=== PATIENT | male | born 1930 | race African-American/Black ===

== ENCOUNTER 2017-02-04 12:59 | Inpatient (IN) | payer MEDICARE, OTHER ==
[~2017-02-04] VITALS: Wt 62.0 kg
[~2017-02-04 12:59] MED LIST: AMO500 PO; BENA5TAB2 PO; DIAZ5TAB4 PO; DICL100G37 TOP; HYDR-3498 PO; HYDR-762 PO; IBUP-1542 PO; IBUP400T22 PO; NAPR-688 PO; SILO8CAP PO; SIMV20TA2 PO; TRAM50TA2 PO
[2017-02-04 13:58] LABS: ADD SCAN DIFF NO
[2017-02-04 14:00] LABS: BASOPHILS % 0.5 % (0.0-2.0); EOSINOPHILS # 0.1 10^3/ul (0.0-0.5); EOSINOPHILS % 1.8 % (0.0-7.0); HEMATOCRIT 29.4 % (42.0-52.0); HEMOGLOBIN 8.7 g/dl (14.0-18.0); LYMPHOCYTES % 22.3 % (15.0-51.0); MEAN CORPUSCULAR HEMOGLOBIN 23.6 pg (29.0-33.0); MEAN CORPUSCULAR HGB CONC 29.6 g/dl (32.0-37.0); MEAN CORPUSCULAR VOLUME 79.7 fl (82.0-101.0); MEAN PLATELET VOLUME 9.7 fl (7.4-10.4); MONOCYTE # 0.3 10^3/ul (0.3-0.9); MONOCYTES % 7.6 % (0.0-11.0); NEUTROPHIL # 2.9 10^3/ul (1.6-7.5); NEUTROPHILS % 67.6 % (39.0-77.0); PLATELET COUNT 261 10^3/UL (140-415); RED BLOOD COUNT 3.69 10^6/ul (4.70-6.10); RED CELL DISTRIBUTION WIDTH 18.6 % (11.5-14.5); WHITE BLOOD COUNT 4.4 10^3/ul (4.8-10.8)
[2017-02-04] MEDS ORDERED: ACETAMINOPHEN 325 MG TAB PO PRN (14:00)
[2017-02-04] MEDS ORDERED: ONDANSETRON 4 MG INJ IV PRN (14:00)
[2017-02-04 14:19] LABS: INR 1.06; PROTIME 13.8 Sec (12.2-14.2); PT RATIO 1.1
[2017-02-04 14:20] LABS: PARTIAL THROMBOPLASTIN TIME 35.6 Sec (25.0-35.0)
--- NOTE | 2017-02-04 14:20 | RADRPT ---
PROCEDURE: XR Chest. CLINICAL INDICATION: Chest pain TECHNIQUE: Single frontal view of the chest was obtained COMPARISON: 08/13/16 FINDINGS: The heart is enlarged. The thoracic aorta is calcified. The lungs are clear. There is no pleural effusion or pneumothorax. RPTAT: AA IMPRESSION: Mild to moderate cardiomegaly. Calcified aorta consistent with atherosclerotic disease. .Russ Murillo MD, MD Date Time Electronically viewed and signed by .Russ Murillo MD, on 02/04/2017 14:20 .S/
[2017-02-04 14:24] LABS: CALCIUM 8.7 mg/dl (8.4-10.2); CREATININE 0.64 mg/dl (0.61-1.24); POTASSIUM 4.3 mmol/L (3.5-5.1)
[2017-02-04 14:35] LABS: TROPONIN-I 0.012 ng/ml (0.00-0.12)
--- NOTE | 2017-02-04 14:43 | RADRPT ---
PROCEDURE: US Lower extremity Venous. CLINICAL INDICATION: Right leg edema TECHNIQUE: Multiple sonographic images of the right lower extremity deep venous system was obtaine d utilizing grayscale, color-flow, compressive sonography and doppler imaging with augmentation. Th e images were reviewed on a PACS workstation. COMPARISON: 07/12/2016 FINDINGS: The right popliteal vein is partially compressible with echogenic material within it. There is echo genic material within the right peroneal vein which is not compressible. There is normal compressibility and flow within the right common femoral, femoral veins. RPTAT: AA IMPRESSION: Partial DVT of the right popliteal vein. DVT of the right peroneal vein. 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 A call report was made and the findings discussed with Darnell Yanez at 02/04/2017 2:41:11 PM. .Russ Murillo MD, MD Date Time Electronically viewed and signed by .Russ Murillo MD, on 02/04/2017 14:43 .S/
--- NOTE | 2017-02-04 14:50 | ERA ---
ER Documentation Chief Complaint Date/Time DATE: 02/04/17 TIME: 14:48 Chief Complaint sent by pmd for r/o dvt on R LEG, NO CP OR SOB NOTED. MILD SWELLING HPI Patient is a 86-year-old male with hypertension who presents with right leg swelling. The patient was sent by Dr. Rincon for admission. Swelling started weeks ago. He had a right knee replacement done in August and then had a revision done as well. His right leg is discolored. He is not on blood thinning medications. He denies pain. He has no chest pain or shortness of breath. ROS All systems reviewed and are negative except as per history of present illness. Medications Home Meds Reported Medications Benazepril Hcl* (Benazepril Hcl*) 5 Mg Tablet, 5 MG PO DAILY, TAB 01/18/15 Diazepam* (Diazepam*) 5 Mg Tablet, 5 MG PO DAILY Y for ANXIETY, TAB 09/07/14 Hydrocodone Bit-Acetaminophen* ([place]*) 10-325 Mg Tablet, 1 TAB PO BID for PAIN , TAB 09/07/14 Silodosin (Rapaflo) 8 Mg Capsule, 8 MG PO DAILY, CAP 09/07/14 Simvastatin (Simvastatin) 20 Mg Tablet, 20 MG PO DAILY, TAB 09/07/14 Discontinued Scripts Tramadol HCl (Tramadol HCl) 50 Mg Tablet, 50 MG PO Q4 Y for PAIN, #20 TAB Prov:OFELIA JENKINS MD 05/30/16 Diclofenac Sodium* (Voltaren* Gel) 1% -100 Gm Gel, 2 GM TOP QID, #1 TUB Prov:KATELIN NICOLE NP 05/05/16 Ibuprofen* (Motrin*) 400 Mg Tab, 400 MG PO Q6, #30 TAB Prov:KATELIN NICOLE NP 05/05/16 Ibuprofen* (Motrin*) 600 Mg Tab, 600 MG PO Q6, #30 TAB Prov:KISHOR CROCKETT PA-C 02/17/16 Naproxen* (Naproxen*) 500 Mg Tablet, 375 MG PO BID for PAIN, #20 TAB Prov:JENNY DOUGHERTY DO 11/04/15 Amoxicillin* (Amoxicillin*) 500 Mg Cap, 500 MG PO TID for 10 Days, CAP Prov:JENNY DOUGHERTY DO 11/04/15 Hydrocodone Bit-Acetaminophen* ([place]*) 10-325 Mg Tablet, 1 TAB PO DAILY Y for PAIN, #7 TAB 0 Refills Prov:NIR JOSEPH PA-C 09/28/15 Hydrocodone Bit-Acetaminophen* ([place]*) 5-325 Mg Tab, 1 TAB PO Q6 Y for PAIN, # 14 TAB Prov:NARESH CLIFFORD PA-C 08/30/15 Allergies Allergies: Coded Allergies: No Known Allergies (Verified Allergy, Mild, 02/04/17) PMhx/Soc History of Surgery: Yes (hip, knee, wrist, ribs sx) Anesthesia Reaction: No Hx Neurological Disorder: No Hx Respiratory Disorders: No Hx Cardiac Disorders: Yes (HTN) Hx Psychiatric Problems: No Hx Alcohol Use: No Hx Substance Use: No Hx Tobacco Use: No Smoking Status: Never smoker FmHx Family History: No diabetes Physical Exam Vitals Vital Signs Date Time Temp Pulse Resp B/P Pulse Ox O2 Delivery O2 Flow Rate FiO2 02/04/17 13:08 97.3 50 20 166/70 98 Physical Exam Const: No acute distress Head: Atraumatic Eyes: Normal Conjunctiva ENT: Normal External Ears, Nose and Mouth. Neck: Full range of motion..~ No meningismus. Resp: Clear to auscultation bilaterally Cardio: Regular rate and rhythm, no murmurs Abd: Soft, non tender, non distended. Normal bowel sounds Skin: Discoloration of the right lower extremity Back: No midline or flank tenderness Ext: Right lower extremity swelling with pitting Neur: Awake and alert Psych: Normal Mood and Affect Result Diagram: 02/04/17 1350 02/04/17 1350 Results 24 hrs Laboratory Tests Test 02/04/17 13:50 White Blood Count 4.410^3/ul Red Blood Count 3.6910^6/ul Hemoglobin 8.7g/dl Hematocrit 29.4% Mean Corpuscular Volume 79.7fl Mean Corpuscular Hemoglobin 23.6pg Mean Corpuscular Hemoglobin Concent 29.6g/dl Red Cell Distribution Width 18.6% Platelet Count 06072^3/UL Mean Platelet Volume 9.7fl Neutrophils % 67.6% Lymphocytes % 22.3% Monocytes % 7.6% Eosinophils % 1.8% Basophils % 0.5% Nucleated Red Blood Cells % 0.0/100WBC Neutrophils # 2.910^3/ul Lymphocytes # 1.010^3/ul Monocytes # 0.310^3/ul Eosinophils # 0.110^3/ul Basophils # 0.010^3/ul Nucleated Red Blood Cells # 0.010^3/ul Prothrombin Time 13.8Sec Prothrombin Time Ratio 1.1 INR International Normalized Ratio 1.06 Activated Partial Thromboplast Time 35.6Sec Sodium Level 141mmol/L Potassium Level 4.3mmol/L Chloride Level 108mmol/L Carbon Dioxide Level 27mmol/L Anion Gap 10 Blood Urea Nitrogen 15mg/dl Creatinine 0.64mg/dl Glucose Level 124mg/dl Calcium Level 8.7mg/dl Troponin I 0.012ng/ml Current Medications Medications (Trade) Dose Ordered Sig/Italo Route PRN Reason Start Time Stop Time Status Last Admin Dose Admin Ondansetron HCl (Zofran Inj) 4 mg BRIDGE ORDER PRN IV NAUSEA AND/OR VOMITING 02/04/17 14:00 02/05/17 13:59 Acetaminophen (Tylenol Tab) 650 mg ER BRIDGE PRN PO MILD PAIN/FEVER 02/04/17 14:00 02/05/17 13:59 Apixaban (Eliquis) 10 mg ONCE ONCE PO 02/04/17 15:00 02/04/17 15:01 Procedures/MDM Right lower extremity ultrasound shows DVT per radiology. Chest x-ray shows cardiomegaly per radiology. Patient is a 86-year-old male with hypertension who presents with an acute DVT. The patient will be given Eliquis for blood thinning. The patient will need admission to the hospital and I spoke with Dr. Rincon who will admit the patient to a medical surgical bed. At this point I doubt pulmonary embolism. I doubt infection. Departure Diagnosis: Primary Impression: DVT (deep venous thrombosis) Qualified Code: I82.401 - Acute deep vein thrombosis (DVT) of right lower extremity, unspecified vein Additional Impression: Right leg swelling Condition: RISSA Bhandari MD Feb 04, 2017 14:50
[2017-02-04] MEDS ORDERED: APIXABAN 5 MG TABLET PO ONE (15:00)
[2017-02-04 21:49] LABS: TROPONIN-I 0.014 ng/ml (0.00-0.12)
[2017-02-04 21:55] LABS: CK-MB 1.23 ng/ml (0.0-2.4)
[2017-02-05 00:54] VITALS: BP_SYST 162; RESP 20
[2017-02-05] MEDS ORDERED: ZOLPIDEM 5 MG TAB PO PRN (02:30)
[2017-02-05] MEDS ORDERED: ACETAMINOPHEN 500 MG TAB PO PRN (02:30)
[2017-02-05 02:46] LABS: TROPONIN-I 0.016 ng/ml (0.00-0.12)
[2017-02-05 02:53] LABS: CK-MB 1.1 ng/ml (0.0-2.4)
[2017-02-05 07:00] VITALS: BP 129/80; RESP 20
[2017-02-05] MEDS: LOSARTAN 50 MG TAB PO SCH (09:33)
[2017-02-05] MEDS: ENOXAPARIN 60 MG/0.6 ML SYG SC SCH (09:34)
[2017-02-05] MEDS ORDERED: LOPERAMIDE 2 MG CAP PO PRN (13:30)
[2017-02-05] MEDS ORDERED: ONDANSETRON 4 MG INJ IV PRN (13:30)
--- NOTE | 2017-02-05 13:43 | HP ---
DATE OF ADMISSION: 02/04/2017 CHIEF COMPLAINT AND HISTORY OF PRESENT ILLNESS: The patient is an 86-year-old gentleman who is well known to me from previous followup with a known history of hypertension, history of lumbar radiculo mika, who was last seen by me in August, was cleared for surgery for right knee replacement in [facility], and had a revision of the same. He was lost to followup. Apparently he was placed at a [facility], from where he was discharged a week ago. He was brought in by his daughter to my office with swelling of the right leg, which has been progressive over the course of last several weeks, wi th some pain. Patient was referred to the emergency room for ruling out deep vein thrombosis. The patient was admitted after a venous study was done which showed partial DVT of the right popliteal v ein and the right peroneal vein. REVIEW OF SYSTEMS: HEAD: No history of headaches, focal weakness, or numbness. EYES: No blurry vision or glaucoma. ENT: Noncontributory. NECK: No history of thyroid disease. CHEST: No bronchitis, hay fever, or asthma. The patient does not smoke. CARDIOVASCULAR: No PND, orthopnea, palpitations. GASTROINTESTINAL: No constipation, diarrhea, change in bowel habits. GENITOURINARY: No dysuria, hematuria, kidney stones. HABITS: Does not smoke or drink. The patient is quite active. Used to go to the gym on a regular basis up until the knee surgery. MEDICATIONS: Include: 1. Simvastatin 20 mg daily. 2. [place] 10/325 mg b.i.d. p.r.n. 3. Diazepam 5 mg p.o. daily for anxiety. 4. Benazepril 5 mg p.o. daily. PRIOR SURGERIES: Include knee replacement and also had hip surgery, exact details not clear. FAMILY HISTORY: Negative for diabetes, hypertension or cancer. PHYSICAL EXAMINATION: GENERAL: The patient is an average-built male who is in mild distress secondary to pain. VITAL SIGNS: Blood pressure 166/70, respiratory 20 per minute, heart rate 52 per minute and regular . HEENT: Head normocephalic. No pallor, cyanosis, or icterus. Tongue is moist. NECK: Supple. No thyromegaly, bruits or lymphadenopathy. LUNGS: Clinically clear. HEART: S1, S2 heard with no definite gallops. ABDOMEN: Soft, nontender, no hepatosplenomegaly. EXTREMITIES: Darkish discoloration of the right lower extremity with 1+ pitting edema with positive Homans sign. LABORATORY DATA: WBC count 4.4, hematocrit 29.4, platelet count 261,000. Sodium 141, potassium 4.3 , BUN 15, creatinine 0.64. Troponin 0.01. 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 IMPRESSION: 1. Deep vein thrombosis of the right lower extremity. 2. Status post right total knee replacement. 3. Hypertension. 4. Mild anemia. PLAN: The patient will be admitted to the medical floor. Patient has had DVT in 2014. Will need t o continue Lovenox for now. Will consider getting a vascular evaluation. Once he is medically stab le, we will consider a trial of rehab. Dictated By: LESLEY PORTER MD, SR/PRINCE Conf#: [id number] DID#: [id number]
[2017-02-05] MEDS: HYDROCODONE/APAP (7.5/325) TAB PO PRN (16:49)
[2017-02-05 21:34] VITALS: BP 142/67; RESP 19
[2017-02-06 05:12] LABS: ADD SCAN DIFF NO
[2017-02-06 05:20] LABS: BASOPHILS % 0.6 % (0.0-2.0); EOSINOPHILS # 0.1 10^3/ul (0.0-0.5); EOSINOPHILS % 3.6 % (0.0-7.0); HEMATOCRIT 25.1 % (42.0-52.0); HEMOGLOBIN 7.5 g/dl (14.0-18.0); MEAN CORPUSCULAR HEMOGLOBIN 23.4 pg (29.0-33.0); MEAN CORPUSCULAR HGB CONC 29.9 g/dl (32.0-37.0); MEAN CORPUSCULAR VOLUME 78.2 fl (82.0-101.0); MEAN PLATELET VOLUME 9.6 fl (7.4-10.4); MONOCYTE # 0.4 10^3/ul (0.3-0.9); MONOCYTES % 10.4 % (0.0-11.0); NEUTROPHIL # 1.8 10^3/ul (1.6-7.5); NEUTROPHILS % 54.1 % (39.0-77.0); PLATELET COUNT 218 10^3/UL (140-415); RED BLOOD COUNT 3.21 10^6/ul (4.70-6.10); RED CELL DISTRIBUTION WIDTH 18.6 % (11.5-14.5); WHITE BLOOD COUNT 3.4 10^3/ul (4.8-10.8)
[2017-02-06 05:35] LABS: CALCIUM 8.7 mg/dl (8.4-10.2); CREATININE 0.64 mg/dl (0.61-1.24); MAGNESIUM 1.9 mg/dl (1.7-2.5)
[2017-02-06 06:05] LABS: THYROID STIMULATING HORMONE 4.09 MIU/L (0.465-4.680)
[2017-02-06] MEDS: LOSARTAN 50 MG TAB PO SCH (08:31)
[2017-02-06] MEDS: ENOXAPARIN 60 MG/0.6 ML SYG SC SCH (08:38)
[2017-02-06 09:37] VITALS: BP 184/97; RESP 19
[2017-02-06 19:38] VITALS: BP 151/67; RESP 18
[2017-02-07] MEDS: HYDROCODONE/APAP (7.5/325) TAB PO PRN (00:13)
--- NOTE | 2017-02-07 01:30 | RADRPT ---
PROCEDURE: X-ray right knee CLINICAL INDICATION: Right knee arthroplasty is new, with swelling. TECHNIQUE: 5 views of the right knee. COMPARISON: None available at the time of this interpretation. FINDINGS: Right knee arthroplasty is seen. There is no evident hardware complication or acute fracture. There is a moderate right knee joint effusion with mild soft tissue swelling over the anterior right knee. There is patella danilo. IMPRESSION: 1. Right knee joint effusion with swelling over the anterior knee. 2. No evident hardware complication or acute fracture. RPTAT: [facility] Physician Mauricio Date Time Electronically viewed and signed by Physician Mauricio on 02/07/2017 01:30 RS/
[2017-02-07] MEDS: PANTOPRAZOLE (EC) 40 MG TAB PO SCH (05:31)
[2017-02-07 05:39] LABS: ADD SCAN DIFF NO
[2017-02-07 05:48] LABS: BASOPHILS % 0.5 % (0.0-2.0); EOSINOPHILS # 0.2 10^3/ul (0.0-0.5); EOSINOPHILS % 3.5 % (0.0-7.0); HEMOGLOBIN 9.3 g/dl (14.0-18.0); LYMPHOCYTES % 23.6 % (15.0-51.0); MEAN CORPUSCULAR HEMOGLOBIN 24.9 pg (29.0-33.0); MEAN CORPUSCULAR VOLUME 80.4 fl (82.0-101.0); MEAN PLATELET VOLUME 9.8 fl (7.4-10.4); MONOCYTE # 0.5 10^3/ul (0.3-0.9); MONOCYTES % 10.9 % (0.0-11.0); NEUTROPHIL # 2.7 10^3/ul (1.6-7.5); NEUTROPHILS % 61.3 % (39.0-77.0); PLATELET COUNT 218 10^3/UL (140-415); RED BLOOD COUNT 3.73 10^6/ul (4.70-6.10); RED CELL DISTRIBUTION WIDTH 18.3 % (11.5-14.5); WHITE BLOOD COUNT 4.3 10^3/ul (4.8-10.8)
[2017-02-07 06:04] LABS: BILIRUBIN,INDIRECT 0.6 mg/dl (0-1.1); BILIRUBIN,TOTAL 0.6 mg/dl (0.2-1.3); CALCIUM 8.8 mg/dl (8.4-10.2); CREATININE 0.73 mg/dl (0.61-1.24); POTASSIUM 4.6 mmol/L (3.5-5.1)
[2017-02-07 06:33] LABS: THYROID STIMULATING HORMONE 5.03 MIU/L (0.465-4.680)
[2017-02-07 07:00] VITALS: BP 182/81; RESP 18
--- NOTE | 2017-02-07 07:15 | CONS ---
Date/Time of Note Date/Time of Note DATE: 02/07/17 TIME: 07:10 Assessment/Plan Assessment/Plan Chief Complaint/Hosp Course 1) RLE partial DVT doubt there is cellulitis no increase in heat (if present it is marginal) no pain and no ian redness CBC is normal without an increase in PMN's ESR, CRP are mildly elevated continue off antibiotics 2) s/p R TKR no sign of knee joint infection, typical swelling post surgery without pain or heat or redness noted 3) HTN Problems: Consultation Date/Type/Reason Admit Date/Time Feb 04, 2017 at 13:46 Date of Consultation: Feb 07, 2017 Type of Consultation: ID Hx of Present Illness pt admitted due to RLE swelling he denies F, C, NS No N, V, D, SOB, cough No pain to the leg He had a R TKR several months ago He had some swelling to calf when he left rehab but it got worse at home He states he is very active at home Past Medical History HTN, Lumbar radiculopathy, DVT post hip surgery Past Surgical History L hip surgery, R TKR Social History Smoking Status: Former smoker Exam/Review of Systems Vital Signs Vitals Vital Signs Date Time Temp Pulse Resp B/P Pulse Ox O2 Delivery O2 Flow Rate FiO2 02/06/17 19:38 97.8 59 18 151/67 100 02/05/17 00:02 Room Air Intake and Output 02/06/17 02/06/17 02/07/17 15:00 23:00 07:00 Intake Total 700 ml 1500 ml Output Total 1000 ml 700 ml Balance -300 ml 800 ml Exam Constitutional: alert, oriented Psych: no complaints Head: normocephalic Eyes: nl sclera ENMT: mucosa pink and moist Respiratory: clear to auscultation Cardiovascular: regular rate and rhythm Gastrointestinal: non-tender, soft Extremities: other (R calf and ankle have swelling without pain or increase in heat, some discoloration of skin but no ian redness) Results Result Diagram: 02/07/17 04202/07/17 0420 Results 24 hrs Laboratory Tests Test 02/06/17 13:57 02/07/17 04:20 02/07/17 07:03 Erythrocyte Sedimentation Rate 37 H C-Reactive Protein 3.2 H White Blood Count 4.3 #L Red Blood Count 3.73 L Hemoglobin 9.3 #L Hematocrit 30.0 L Mean Corpuscular Volume 80.4 L Mean Corpuscular Hemoglobin 24.9 L Mean Corpuscular Hemoglobin Concent 31.0 L Red Cell Distribution Width 18.3 H Platelet Count 218 Mean Platelet Volume 9.8 Neutrophils % 61.3 Lymphocytes % 23.6 Monocytes % 10.9 Eosinophils % 3.5 Basophils % 0.5 Nucleated Red Blood Cells % 0.0 Neutrophils # 2.7 Lymphocytes # 1.0 Monocytes # 0.5 Eosinophils # 0.2 Basophils # 0.0 Nucleated Red Blood Cells # 0.0 Sodium Level 138 Potassium Level 4.6 Chloride Level 106 Carbon Dioxide Level 27 Anion Gap 10 Blood Urea Nitrogen 13 Creatinine 0.73 Glucose Level 77 Calcium Level 8.8 Total Bilirubin 0.6 Direct Bilirubin 0.00 Indirect Bilirubin 0.6 Aspartate Amino Transf (AST/SGOT) 20 Alanine Aminotransferase (ALT/SGPT) 27 Alkaline Phosphatase 78 Total Protein 6.0 L Albumin 3.0 L Globulin 3.00 Albumin/Globulin Ratio 1.00 Thyroid Stimulating Hormone (TSH) 5.030 H Thyroxine (T4) 6.3 Lab Scanned Report BLOOD TRANSFUSION Medications Medications Current Medications Enoxaparin Sodium (Lovenox) 60 mg DAILY SC Last administered on 02/06/17 08:38 ; Admin Dose 60 MG; Start 02/05/17 at 09:00 Losartan Potassium (Cozaar) 50 mg DAILY PO Last administered on 02/06/17 08:31 ; Admin Dose 50 MG; Start 02/05/17 at 09:00 Clonidine (Catapres) 0.1 mg Q4H PRN PO ELEVATED BLOOD PRESSURE Last administered on 02/06/17 08:31; Admin Dose 0.1 MG; Start 02/05/17 at 02:30 Acetaminophen/ Hydrocodone Bitart ([place] (7.5-325)) 1 tab Q4H PRN PO SEVERE PAIN LEVEL 7-10 Last administered on 02/07/17 00:13; Admin Dose 1 TAB; Start 02/05/17 at 02:30 Acetaminophen (Tylenol Tab) 500 mg Q4H PRN PO PAIN AND OR ELEVATED TEMP; Start 02/05/17 at 02:30 Lorazepam (Ativan) 0.5 mg Q4H PRN PO ANXIETY; Start 02/05/17 at 02:30 Zolpidem Tartrate (Ambien) 5 mg HS PRN PO INSOMNIA; Start 02/05/17 at 02:30 Loperamide HCl (Imodium Cap) 2 mg QID PRN PO DIARRHEA; Start 02/05/17 at 13:30 Ondansetron HCl (Zofran Inj) 4 mg Q6H PRN IV NAUSEA AND/OR VOMITING; Start 02/05 at 13:30 Pantoprazole (Protonix Tab) 40 mg DAILY@06 PO Last administered on 02/07/17t 05: 31; Admin Dose 40 MG; Start 02/07/17 at 06:00 KIM HWANG MD Feb 07, 2017 07:15
--- NOTE | 2017-02-07 07:31 | PN ---
DATE: 02/06/2017 SUBJECTIVE: The patient has mild pain in the right leg. Denies any chest pain or shortness of anthony th. PHYSICAL EXAMINATION VITAL SIGNS: Temperature 97.8, blood pressure 184/97, heart rate 53 per minute, pulse ox 100%. CHEST: Clinically clear. HEART: S1, S2 heard with no definite gallops. ABDOMEN: Soft, nontender, no hepatosplenomegaly. EXTREMITIES: Mild swelling of the right knee, the right leg feels warmer compared to the left leg. Right heel and foot without any swelling. LABORATORY DATA: WBC count 33.4, hematocrit 25.1, hemoglobin of 7.5. IMPRESSION: 1. Deep vein thrombosis of the right lower extremity. 2. Status post right total knee replacement. 3. Severe anemia. 4. The patient likely has underlying cellulitis, right leg. PLAN: Will obtain sed rate. Type and cross for 2 units of packed cells transfused 2 units. We [place] request an infectious disease consultation, Dr. Real. Consider IV antibiotic coverage. Dictated By: LESLEY PORTER MD, SR/PRINCE Conf#: [id number] DID#: [id number]
[2017-02-07 07:35] VITALS: BP 158/84; PULSE 50
[2017-02-07] MEDS: ENOXAPARIN 60 MG/0.6 ML SYG SC SCH (09:10)
[2017-02-07] MEDS: LOSARTAN 50 MG TAB PO SCH (09:12)
[2017-02-07 20:02] VITALS: BP 145/67; RESP 18
[2017-02-07] MEDS: LORAZEPAM 0.5 MG TAB PO PRN (21:20)
[2017-02-08] MEDS: PANTOPRAZOLE (EC) 40 MG TAB PO SCH (05:36)
[2017-02-08 07:00] VITALS: BP 189/91; RESP 18
[2017-02-08] MEDS: LOSARTAN 50 MG TAB PO SCH (09:56)
[2017-02-08] MEDS: ENOXAPARIN 60 MG/0.6 ML SYG SC SCH (10:01)
--- NOTE | 2017-02-08 15:26 | PN ---
DATE: 02/08/2017 SUBJECTIVE: The patient has less pain in the right knee. Denies any chest pain or shortness of bryan ath. PHYSICAL EXAMINATION: GENERAL: The patient is afebrile. VITAL SIGNS: Temperature 98.9, heart rate 54 per minute, blood pressure 189/91, O2 saturation 95% on room air. CHEST: Clinically clear. HEART: S1, S2 heard. No definite gallops. EXTREMITIES: Decreased swelling in the right leg. Dr. Real, ID evaluation, greatly appreciated. X-ray of the right knee shows joint effusion with swe lling over the anterior knee. IMPRESSION: 1. Status post right total knee replacement, with DVT of the right lower extremity. 2. Anemia. Improved after transfusions. 3. Hypertension. PLAN: Will get the patient evaluated for physical therapy and discuss with the rehab unit for possi ble admission. Dictated By: LESLEY PORTER MD, SR/PRINCE Conf#: [id number] DID#: [id number]
[2017-02-08 19:00] VITALS: BP 166/67; RESP 18
[2017-02-09] MEDS: LORAZEPAM 0.5 MG TAB PO PRN (01:22)
[2017-02-09 01:24] VITALS: BP 167/83; PULSE 63
[2017-02-09 05:18] LABS: ADD SCAN DIFF NO
[2017-02-09 05:25] VITALS: BP 146/73; PULSE 53; RESP 17
[2017-02-09] MEDS: PANTOPRAZOLE (EC) 40 MG TAB PO SCH (05:26)
[2017-02-09 05:28] LABS: BASOPHILS % 0.4 % (0.0-2.0); EOSINOPHILS # 0.1 10^3/ul (0.0-0.5); EOSINOPHILS % 2.1 % (0.0-7.0); HEMATOCRIT 32.4 % (42.0-52.0); HEMOGLOBIN 9.9 g/dl (14.0-18.0); LYMPHOCYTES # 0.9 10^3/ul (0.8-2.9); LYMPHOCYTES % 15.6 % (15.0-51.0); MEAN CORPUSCULAR HEMOGLOBIN 25.1 pg (29.0-33.0); MEAN CORPUSCULAR HGB CONC 30.6 g/dl (32.0-37.0); MEAN CORPUSCULAR VOLUME 82.2 fl (82.0-101.0); MEAN PLATELET VOLUME 11.4 fl (7.4-10.4); MONOCYTE # 0.8 10^3/ul (0.3-0.9); MONOCYTES % 13.3 % (0.0-11.0); NEUTROPHIL # 3.9 10^3/ul (1.6-7.5); NEUTROPHILS % 68.2 % (39.0-77.0); PLATELET COUNT 194 10^3/UL (140-415); RED BLOOD COUNT 3.94 10^6/ul (4.70-6.10); RED CELL DISTRIBUTION WIDTH 19.4 % (11.5-14.5); WHITE BLOOD COUNT 5.7 10^3/ul (4.8-10.8)
[2017-02-09 05:41] LABS: CALCIUM 8.5 mg/dl (8.4-10.2); CREATININE 0.63 mg/dl (0.61-1.24); MAGNESIUM 1.9 mg/dl (1.7-2.5); POTASSIUM 4.2 mmol/L (3.5-5.1)
[2017-02-09 08:16] VITALS: BP 153/78; RESP 56
[2017-02-09] MEDS: ENOXAPARIN 60 MG/0.6 ML SYG SC SCH (10:26)
[2017-02-09] MEDS: LOSARTAN 50 MG TAB PO SCH (10:27)
[2017-02-09] MEDS: HYDROCODONE/APAP (7.5/325) TAB PO PRN ×2 (18:34→22:33)
[2017-02-09 19:10] VITALS: BP 155/78; RESP 16
[2017-02-10] MEDS: LORAZEPAM 0.5 MG TAB PO PRN (01:53)
[2017-02-10] MEDS: HYDROCODONE/APAP (7.5/325) TAB PO PRN (03:13)
[2017-02-10] MEDS: PANTOPRAZOLE (EC) 40 MG TAB PO SCH (05:58)
--- NOTE | 2017-02-10 07:30 | PN ---
DATE: 02/09/2017 SUBJECTIVE: The patient has some pain, right knee. Denies any chest pain or shortness of breath. PHYSICAL EXAMINATION: VITAL SIGNS: Temperature 98.6, blood pressure 153/78, O2 sat is 100%. CHEST: Clinically clear. HEART: S1, S2 heard with no audible gallops. EXTREMITIES: Decreased swelling in the right leg. IMPRESSION: 1. Status post right total knee replacement with DVT of right lower extremity. 2. Anemia, improved after transfusion. 3. Hypertension. PLAN: We will await for physical therapy and then discuss with rehab unit for possible transfer to rehab. Dictated By: LESLEY PORTER MD SR/PRINCE Conf#: [id number] DID#: [id number]
--- NOTE | 2017-02-10 08:01 | PN ---
DATE: 02/07/2017 SUBJECTIVE: The patient has mild pain in the right knee. Denies any chest pain or shortness of bryan ath. PHYSICAL EXAMINATION: VITAL SIGNS: Temperature 97.8, heart rate 50 per minute, regular, blood pressure 182/81 in the morn ing, presently is 158/84. JVD is not increased. LUNGS: Clinically clear. HEART: S1, S2 heard with no definite gallops. EXTREMITIES: No edema. Minimal swelling of the right lower extremity with positive Homans sign. Dr. Real from ID consultation greatly appreciated. X-ray of the right knee shows a right knee effusion, no evident hardware complication or acute fract ure evident. LABORATORY DATA: WBC count 4.3, hematocrit 30, status post 2 units of packed cells. Sodium 138, po tassium 4.6. IMPRESSION: 1. DVT of the right lower extremity, status post right total knee replacement. 2. Anemia, stable. 3. Hypertension. We will get a PT evaluation tomorrow and eventually consider acute rehabilitation unit consultation. Dictated By: LESLEY PORTER MD, SR/PRINCE Conf#: [id number] DID#: [id number]
[2017-02-10 08:18] VITALS: BP 134/67; RESP 18
[2017-02-10] MEDS: APIXABAN 5 MG TABLET PO SCH ×3 (09:08→22:08)
[2017-02-10] MEDS: LOSARTAN 50 MG TAB PO SCH (09:08)
[2017-02-10 19:30] VITALS: BP 138/67; RESP 20
[2017-02-11] MEDS: PANTOPRAZOLE (EC) 40 MG TAB PO SCH (05:30)
--- NOTE | 2017-02-11 07:11 | PN ---
DATE: 02/10/2017 SUBJECTIVE: The patient has less pain in the right leg. No chest pain or shortness of breath. OBJECTIVE: VITAL SIGNS: Temperature 98, blood pressure 134/67, O2 sat 98% room air. LUNGS: Clinically clear. HEART: S1, S2 heard with no definite gallops. EXTREMITIES: No edema right lower extremity. Homans negative. The patient was started on Eliquis. LABORATORY DATA: WBC count 5.7, hematocrit 32.4, platelet count 194,000. Sodium 139, potassium 4.2 , BUN 17, creatinine 0.63, magnesium 1.9. IMPRESSION: 1. Status post right total knee replacement with deep vein thrombosis, right lower extremity. 2. Anemia, stable. 3. Hypertension. 4. Frailty and poor functional status. PLAN: I have requested physical therapy to evaluate the patient to start him on gait training, rea sfer training, and we will request acute rehabilitation unit evaluation since the plans are to disch arge him back to home. Dictated By: LESLEY PORTER MD, SR/PRINCE Conf#: [id number] DID#: [id number]
[2017-02-11 07:29] VITALS: BP 153/70; RESP 18
[2017-02-11] MEDS: LOSARTAN 50 MG TAB PO SCH (08:55)
[2017-02-11] MEDS: APIXABAN 5 MG TABLET PO SCH ×2 (08:55→20:00)
--- NOTE | 2017-02-11 11:25 | PN ---
DATE: 02/11/2017 SUBJECTIVE: The patient denies any leg pain. No chest pain or shortness of breath. PHYSICAL EXAMINATION: VITAL SIGNS: Temperature 97.9, heart rate 54 per minute regular, blood pressure 153/70, O2 sats 98% on room air. CHEST: Clinically clear. HEART: S1, S2 heard with no definite gallops. ABDOMEN: Soft, nontender. No hepatosplenomegaly. EXTREMITIES: No edema. Homans sign negative. The patient tolerating p.o. liquids. IMPRESSION: 1. Status post right knee replacement with deep vein thrombosis, right lower extremity. 2. Anemia, stable. 3. Hypertension. 4. Poor functional status. The patient has been started on physical therapy. Acute rehabilitation unit evaluation is pending. Dictated By: LESLEY PORTER MD, SR/PRINCE Conf#: [id number] DID#: [id number]
[2017-02-11] MEDS: LORAZEPAM 0.5 MG TAB PO PRN (19:57)
[2017-02-11 20:27] VITALS: BP 118/65; RESP 20
[2017-02-12] MEDS: HYDROCODONE/APAP (7.5/325) TAB PO PRN (00:54)
[2017-02-12] MEDS: PANTOPRAZOLE (EC) 40 MG TAB PO SCH (05:24)
[2017-02-12 08:12] VITALS: BP 155/77; RESP 18
[2017-02-12] MEDS: APIXABAN 5 MG TABLET PO SCH (09:47)
[2017-02-12] MEDS: LOSARTAN 50 MG TAB PO SCH (09:47)
--- NOTE | 2017-02-13 06:57 | PN ---
DATE: 02/12/2017 SUBJECTIVE: The patient overall feels better. Minimal right lower extremity pain. Complains of ge neralized weakness. PHYSICAL EXAMINATION: GENERAL: The patient is awake, alert. VITAL SIGNS: Temperature 97.7, heart rate 52 per minute and regular, blood pressure 155/77. CHEST: Clinically clear. HEART: S1, S2 with no definite gallops. EXTREMITIES: No edema. Moderate proximal muscle weakness in the lower extremities, especially the quadriceps. IMPRESSION: 1. Status post right knee replacement with deep vein thrombosis of the right lower extremity. 2. 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 3. Anemia, stable. 4. Hypertension. PLAN: The patient is in the process of being transferred to the rehab unit where he will continue r ehabilitation. Suspect good improvement in his overall physical condition with rehab treatment. Dictated By: LESLEY PORTER MD, SR/PRINCE Conf#: [id number] DID#: [id number]
== END 2017-02-12 18:40 | DRG 301 ==
LOC: E/R 12:59 → MS1 13:46
PROVIDERS: ADMIT Internal Medicine; ATTEND Internal Medicine
DX: I82.431 Acute embolism and thrombosis of right popliteal vein (principal); D64.9 Anemia, unspecified; G72.9 Myopathy, unspecified; I10 Essential (primary) hypertension; Z96.651 Presence of right artificial knee joint; Z87.891 Personal history of nicotine dependence
CPT/HCPCS: 36415; 36430; 71010; 73562; 80048; 80053; 82550; 82553; 83735; 84436; 84443; 84484; 85025; 85610; 85651; 85730; 86140; 86850; 86900; 86901; 86920; 93005; 93971; 97162; 97530; P9016

== ENCOUNTER 2017-02-12 13:06 | Inpatient (IN) | payer MEDICARE ==
[~2017-02-12] VITALS: Ht 175.3 cm; Wt 65.1 kg
[~2017-02-12 13:06] MED LIST changes: -AMO500 PO; -DICL100G37 TOP; -HYDR-3498 PO; -IBUP-1542 PO; -IBUP400T22 PO; -NAPR-688 PO; -TRAM50TA2 PO
[2017-02-12 20:06] VITALS: BP 138/69; RESP 18
[2017-02-12 21:00] VITALS: Ht 175.3 cm; Wt 65.1 kg
[2017-02-12] MEDS ORDERED: ZOLPIDEM 5 MG TAB PO PRN (21:00)
[2017-02-12] MEDS ORDERED: LOPERAMIDE 2 MG CAP PO PRN (21:00)
[2017-02-12] MEDS ORDERED: ACETAMINOPHEN 500 MG TAB PO PRN (21:00)
[2017-02-12] MEDS ORDERED: ONDANSETRON 4 MG INJ IV PRN (21:00)
[2017-02-12] MEDS ORDERED: LORAZEPAM 0.5 MG TAB PO PRN (21:00)
[2017-02-12] MEDS ORDERED: BISACODYL 10 MG SUPP PR PRN (21:30)
[2017-02-12] MEDS ORDERED: MAGNESIUM HYDROXIDE 30ML CUP PO PRN (21:30)
[2017-02-12] MEDS ORDERED: LACTULOSE 30ML CUP PO PRN (21:30)
[2017-02-12] MEDS: APIXABAN 5 MG TABLET PO SCH (21:52)
[2017-02-12] MEDS: HYDROCODONE/APAP (7.5/325) TAB PO PRN (22:12)
[2017-02-13 03:08] LABS: UR BILIRUBIN (Dip) NEGATIVE (NEGATIVE); UR CLARITY CLEAR (CLEAR); UR COLOR LT. YELLOW (YELLOW); UR GLUCOSE (Dip) NEGATIVE (NEGATIVE); UR KETONES (Dip) NEGATIVE (NEGATIVE); UR LEUKOCYTE ESTERASE (Dip) NEGATIVE (NEGATIVE); UR NITRITE (Dip) NEGATIVE (NEGATIVE); UR TOTAL PROTEIN (Dip) NEGATIVE (NEGATIVE); UR UROBILINOGEN (Dip) 0.2 E.U./dL (0.1-1.0)
[2017-02-13 03:17] LABS: ADD UMIC NO; UR BLOOD (Dip) NEGATIVE (NEGATIVE)
[2017-02-13] MEDS: PANTOPRAZOLE (EC) 40 MG TAB PO SCH (06:40)
[2017-02-13 07:17] LABS: ADD SCAN DIFF NO
[2017-02-13 07:18] LABS: BASOPHILS % 0.7 % (0.0-2.0); EOSINOPHILS # 0.2 10^3/ul (0.0-0.5); HEMATOCRIT 31.2 % (42.0-52.0); HEMOGLOBIN 9.3 g/dl (14.0-18.0); LYMPHOCYTES % 23.9 % (15.0-51.0); MEAN CORPUSCULAR HEMOGLOBIN 24.5 pg (29.0-33.0); MEAN CORPUSCULAR HGB CONC 29.8 g/dl (32.0-37.0); MEAN CORPUSCULAR VOLUME 82.1 fl (82.0-101.0); MEAN PLATELET VOLUME 9.8 fl (7.4-10.4); MONOCYTE # 0.4 10^3/ul (0.3-0.9); MONOCYTES % 9.5 % (0.0-11.0); NEUTROPHIL # 2.6 10^3/ul (1.6-7.5); NEUTROPHILS % 61.7 % (39.0-77.0); PLATELET COUNT 260 10^3/UL (140-415); RED CELL DISTRIBUTION WIDTH 19.3 % (11.5-14.5); WHITE BLOOD COUNT 4.2 10^3/ul (4.8-10.8)
[2017-02-13 07:30] VITALS: BP 161/70; RESP 18
[2017-02-13 07:58] LABS: ALBUMIN 3.2 g/dl (3.3-4.9); ALBUMIN/GLOBULIN RATIO 1.03; BILIRUBIN,INDIRECT 0.1 mg/dl (0-1.1); BILIRUBIN,TOTAL 0.1 mg/dl (0.2-1.3); CALCIUM 8.7 mg/dl (8.4-10.2); CREATININE 0.67 mg/dl (0.61-1.24); POTASSIUM 3.9 mmol/L (3.5-5.1); TOTAL PROTEIN 6.3 g/dl (6.1-8.1)
[2017-02-13] MEDS: LOSARTAN 50 MG TAB PO SCH (08:59)
[2017-02-13] MEDS: APIXABAN 5 MG TABLET PO SCH ×2 (08:59→20:51)
[2017-02-13 09:36] VITALS: BP 161/70; PULSE 50; RESP 18
--- NOTE | 2017-02-13 11:05 | PN ---
DATE: 02/13/2017 SUBJECTIVE: The patient has been transferred to the rehab unit. Presently complains of mild anxie ty. Denies any chest pain or shortness of breath. PHYSICAL EXAMINATION VITAL SIGNS: Blood pressure ____/70, temperature 97.4. O2 sat is 100% on room air. CHEST: Clinically clear. HEART: S1, S2 heard with no definite gallops. EXTREMITIES: No edema. Homans sign is negative. IMPRESSION: 1. Status post right knee replacement with deep venous thrombosis of the right lower extremity, cherry sara Rios. 2. 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 3. Chronic anemia. 4. Hypertension. PLAN: Will start the patient on low dose lorazepam on a p.r.n. basis for anxiety. Continue intensi ve rehabilitation per Dr. Elmore. I expect that his physical status will significantly improve over the coming days with rehabilitation. Dictated By: LESLEY PORTER MD, SR/PRINCE Conf#: [id number] DID#: [id number]
--- NOTE | 2017-02-13 13:04 | CONS ---
DATE OF ADMISSION: 02/12/2017 DATE OF CONSULTATION: 02/13/2017 REHABILITATION POST ADMISSION PHYSICIAN EVALUATION REHABILITATION IMPAIRMENT CATEGORY: Disuse myopathy. ACTIVE COMORBIDITIES: 1. Lumbar radiculopathy. 2. Hypertension. 3. Degenerative joint disease. 4. Right lower extremity deep venous thrombosis. 5. Impairments in self-care and mobility. HISTORY OF PRESENT ILLNESS: The patient is a pleasant 86-year-old gentleman with a history of lumbar radiculopathy and recent right total knee replacement, who had been at home after a stay at a senior care for his revision, when he was noted to have worsening swelling and pain diffusely, but not more notable in the right lower extremity. The patient was noted to have a right lower extremity deep venous thrombosis. 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 The patient was noted to have significant impairments in self-care and mobility as compared to baseline, and has been cleared to transfer to the rehabilitation unit for comprehensive interdisciplinary rehab care. FUNCTIONAL HISTORY: Prior to recent events, he was independent in self-care tasks and mobility. Currently he requires maximal assist for self-care and mobility tasks. I have reviewed the preadmission screen and the patient's current functional status is consistent with the preadmission screen. SOCIAL HISTORY: The patient has supportive family and hopes to return home upon discharge. PAST MEDICAL HISTORY: 1. Hypertension. 2. Lumbar radiculopathy. CURRENT MEDICATIONS: 1. Eliquis 5 mg p.o. b.i.d. 2. Catapres p.r.n. 3. [place] p.r.n. 4. Ativan p.r.n. 5. Cozaar 50 mg p.o. daily. 6. Protonix 40 mg p.o. daily. ALLERGIES: PATIENT WITH NO KNOWN DRUG ALLERGIES. PHYSICAL EXAMINATION: VITAL SIGNS: The patient is currently afebrile, with stable vital signs. HEENT: Extraocular motions intact. Oropharynx is clear. NECK: Supple. LUNGS: Clear anteriorly. CARDIAC: S1, S2. ABDOMEN: Soft, nontender, positive bowel sounds. NEUROLOGIC: He is awake and alert. He is oriented to person and hospital. He will follow simple 1-step commands. 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 He has decreased shoulder forward flexion and abduction bilaterally. He demonstrates antigravity strength in the bilateral lower extremities. He does have impaired dynamic balance. PLAN: The patient has been admitted for comprehensive interdisciplinary acute rehab and is anticipated to tolerate 3 hours of daily therapy in divided doses for at least 5/7 days a week. The treatment plan will include: 1. Physical therapy to focus on bed mobility, transfers, and household ambulation, with the goal of having the patient reach a standby assist level. 2. Occupational therapy to focus on hygiene, grooming, dressing, bathing, and toileting activities, with the goal of having the patient reach a standby assist level. 3. Rehabilitation nursing for carryover of therapeutic interventions, with the goal of continent of bowel and bladder, and the goal of patient and family education with regards to the aforementioned issues. 4. Speech therapy for full cognitive assessment and retraining, with the goal of having the patient return to baseline cognition. ESTIMATED LENGTH OF STAY: 14 days. DISPOSITION GOAL: Home. Rehabilitation Barrier: Lumbar Radiculopathy Intervention for Barrier: Interdisciplinary Rehab I acknowledge that I performed a full physical examination on this patient within 24 hours of admission to the rehabilitation unit and believe the patient is a good candidate for comprehensive interdisciplinary rehab care and is anticipated to make reasonable goals in a reasonable period of time, as outlined above. Dictated By: YASH LAND/PRINCE Conf#: [id number] DID#: [id number] MTDD
[2017-02-13 20:00] VITALS: BP 162/68; RESP 20
[2017-02-13] MEDS: HYDROCODONE/APAP (7.5/325) TAB PO PRN (20:52)
[2017-02-14] MEDS: HYDROCODONE/APAP (7.5/325) TAB PO PRN (03:16)
[2017-02-14] MEDS: PANTOPRAZOLE (EC) 40 MG TAB PO SCH (06:30)
[2017-02-14 07:45] VITALS: BP 152/77; PULSE 45; RESP 16
[2017-02-14] MEDS: APIXABAN 5 MG TABLET PO SCH ×2 (08:34→21:26)
[2017-02-14] MEDS: LOSARTAN 50 MG TAB PO SCH (08:34)
--- NOTE | 2017-02-14 09:34 | CONS ---
Date/Time of Note Date/Time of Note DATE: 02/14/17 TIME: 09:32 Consult Date/Type/Reason Admit Date/Time Feb 12, 2017 at 18:47 Initial Consult Date Subjective Tolerating rehab Objective mod assist transfer mod ambulation with PT Vital Signs Date Time Temp Pulse Resp B/P Pulse Ox O2 Delivery O2 Flow Rate FiO2 02/14/17 07:45 97.6 45 16 152/77 98 Room Air Intake and Output 02/13/17 02/13/17 02/14/17 15:00 23:00 07:00 Intake Total 620 ml 490 ml Output Total 620 ml 1470 ml Balance 0 ml -980 ml Results/Medications Result Diagram: 02/13/1760402/13/17604 Medications Current Medications Acetaminophen (Tylenol Tab) 500 mg Q4H PRN PO PAIN AND OR ELEVATED TEMP; Start 02/12/17 at 21:00 Apixaban (Eliquis) 5 mg BID PO Last administered on 02/14/17 08:34; Admin Dose 5 MG; Start 02/12/17 at 22:00 Clonidine (Catapres) 0.1 mg Q4H PRN PO ELEVATED BLOOD PRESSURE; Start 02/12/17 at 21:00 Acetaminophen/ Hydrocodone Bitart ([place] (7.5-325)) 1 tab Q4H PRN PO SEVERE PAIN LEVEL 7-10 Last administered on 02/14/17 03:16; Admin Dose 1 TAB; Start at 21:00 Loperamide HCl (Imodium Cap) 2 mg QID PRN PO DIARRHEA; Start 02/12/17 at 21:00 Losartan Potassium (Cozaar) 50 mg DAILY PO Last administered on 02/14/17 08:34 ; Admin Dose 50 MG; Start 02/13/17 at 09:00 Ondansetron HCl (Zofran Inj) 4 mg Q6H PRN IV NAUSEA AND/OR VOMITING; Start at 21:00 Pantoprazole (Protonix Tab) 40 mg DAILY@06 PO Last administered on 02/14/17 06 :30; Admin Dose 40 MG; Start 02/13/17 at 06:00 Zolpidem Tartrate (Ambien) 5 mg HS PRN PO INSOMNIA; Start 02/12/17 at 21:00 Bisacodyl (Dulcolax Supp) 10 mg DAILY PRN [place] CONSTIPATION; Start 02/12/17 at 21 :30 Magnesium Hydroxide (Milk Of Mag) 30 ml BID PRN PO CONSTIPATION; Start at 21:30 Lactulose (Enulose) 20 gm DAILY PRN PO CONSTIPATION; Start 02/12/17 at 21:30 Lorazepam (Ativan) 0.5 mg BID PRN PO anxiety; Start 02/13/17 at 10:30 Assessment/Plan Additional Assessment/Plan Rehab- Disuse myopathy;Lumbar radiculopathy. Continue rehab treatment plan Hypertension. Degenerative joint disease- s.p R TKR Right lower extremity deep venous thrombosis. YASH MORALES MD Feb 14, 2017 09:34
[2017-02-14] MEDS: LORAZEPAM 0.5 MG TAB PO PRN (12:04)
[2017-02-14] MEDS: MUPIROCIN 2% 22 GM OINT TOP SCH ×2 (13:03→21:26)
--- NOTE | 2017-02-14 15:22 | PN ---
DATE: 02/14/2017 SUBJECTIVE: The patient has minimal pain in the right leg. Denies any chest pain or shortness of b reath. Ambulating with help. OBJECTIVE: VITAL SIGNS: Temperature 97.6, blood pressure 152/77, O2 saturation is 98% on room air. CHEST: Clinically clear. HEART: S1, S2 heard with no definite gallops. EXTREMITIES: No edema. Homans negative. IMPRESSION: 1. Status post right lower extremity deep venous thrombosis. 2. Disuse myopathy. 3. Hypertension. PLAN: Continue rehab per Dr. Ramírez Sweet. Dictated By: LESLEY PORTER MD SR/NTS Conf#: [id number] DID#: [id number]
[2017-02-14 20:55] VITALS: BP 122/61; RESP 18
[2017-02-15] MEDS: PANTOPRAZOLE (EC) 40 MG TAB PO SCH (06:14)
[2017-02-15 07:30] VITALS: BP 144/72; RESP 18
[2017-02-15] MEDS: LOSARTAN 50 MG TAB PO SCH (09:19)
[2017-02-15] MEDS: APIXABAN 5 MG TABLET PO SCH ×2 (09:19→20:08)
[2017-02-15] MEDS: MUPIROCIN 2% 22 GM OINT TOP SCH ×2 (09:19→20:08)
--- NOTE | 2017-02-15 09:45 | PN ---
Date/Time of Note Date/Time of Note DATE: 02/15/17 TIME: 09:41 Assessment/Plan VTE Prophylaxis VTE Prophylaxis Intervention: other (Eliquis) Lines/Catheters IV Catheter Type (from Nrs): Saline Lock Urinary Cath still in place: No Assessment/Plan Assessment/Plan 1. Disuse myopathy with impaired mobility/gait/ADLs. Continue PT/OT. Min assist for supine to sit, mod assist for sit to stand. 2. History of chronic low back pain. Stable. Continue pain regimen. 3. History of degenerative joint disease, status post recent right total knee replacement. 4. RLE DVT. On anticoagulation per internal medicine. 5. Hypertension. Monitor BP. Internal medicine managing. 6. Anemia. Monitor hemoglobin/hematocrit. 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 Continue isolation precautions. Subjective 24 Hr Interval Summary Free Text/Dictation Rehab progress note Subjective: Denies any acute complaints at present. Denies any pain. ROS: No chest pain, no shortness of breath, no abdominal pain, no nausea, no vomiting, no dizziness, no headache, no chills. Exam/Review of Systems Vital Signs Vitals Vital Signs Date Time Temp Pulse Resp B/P Pulse Ox O2 Delivery O2 Flow Rate FiO2 02/14/17 20:55 98.7 54 18 122/61 99 02/14/17 07:45 Room Air Intake and Output 02/14/17 02/14/17 02/15/17 15:00 23:00 07:00 Intake Total 960 ml 600 ml Output Total 425 ml 600 ml Balance 535 ml 0 ml Exam General: Awake, alert, no acute distress CV: Regular rate, s1s2 Lungs: Respirations nonlabored, no wheezing Abdomen soft, nontender Extremities without cyanosis, no new swelling Neuro: Antigravity strength BLE. Follows simple commands. Results Result Diagram: 02/13/1760402/13/17604 Medications Medications Current Medications Acetaminophen (Tylenol Tab) 500 mg Q4H PRN PO PAIN AND OR ELEVATED TEMP; Start 02/12/17 at 21:00 Apixaban (Eliquis) 5 mg BID PO Last administered on 02/15/17t 09:19; Admin Dose 5 MG; Start 02/12/17 at 22:00 Clonidine (Catapres) 0.1 mg Q4H PRN PO ELEVATED BLOOD PRESSURE; Start 02/12/17 at 21:00 Acetaminophen/ Hydrocodone Bitart ([place] (7.5-325)) 1 tab Q4H PRN PO SEVERE PAIN LEVEL 7-10 Last administered on 02/14/17 03:16; Admin Dose 1 TAB; Start at 21:00 Loperamide HCl (Imodium Cap) 2 mg QID PRN PO DIARRHEA; Start 02/12/17 at 21:00 Losartan Potassium (Cozaar) 50 mg DAILY PO Last administered on 02/15/17 09:19 ; Admin Dose 50 MG; Start 02/13/17 at 09:00 Ondansetron HCl (Zofran Inj) 4 mg Q6H PRN IV NAUSEA AND/OR VOMITING; Start at 21:00 Pantoprazole (Protonix Tab) 40 mg DAILY@06 PO Last administered on 02/15/17 06 :14; Admin Dose 40 MG; Start 02/13/17 at 06:00 Zolpidem Tartrate (Ambien) 5 mg HS PRN PO INSOMNIA; Start 02/12/17 at 21:00 Bisacodyl (Dulcolax Supp) 10 mg DAILY PRN [place] CONSTIPATION; Start 02/12/17 at 21 :30 Magnesium Hydroxide (Milk Of Mag) 30 ml BID PRN PO CONSTIPATION; Start at 21:30 Lactulose (Enulose) 20 gm DAILY PRN PO CONSTIPATION; Start 02/12/17 at 21:30 Lorazepam (Ativan) 0.5 mg BID PRN PO anxiety Last administered on 02/14/17 12: 04; Admin Dose 0.5 MG; Start 02/13/17 at 10:30 Mupirocin (Bactroban) 1 applic BID TOP Last administered on 02/15/17 09:19; Admin Dose 1 APPLIC; Start 02/14/17 at 12:00 ABE WARD Feb 15, 2017 09:45
[2017-02-15 19:37] VITALS: BP 127/61; RESP 18
[2017-02-15] MEDS: HYDROCODONE/APAP (7.5/325) TAB PO PRN (20:09)
[2017-02-16] MEDS: PANTOPRAZOLE (EC) 40 MG TAB PO SCH (06:23)
[2017-02-16 06:42] LABS: ADD SCAN DIFF NO
[2017-02-16 07:03] LABS: BASOPHILS % 0.5 % (0.0-2.0); EOSINOPHILS # 0.1 10^3/ul (0.0-0.5); HEMATOCRIT 30.7 % (42.0-52.0); HEMOGLOBIN 9.3 g/dl (14.0-18.0); LYMPHOCYTES # 0.7 10^3/ul (0.8-2.9); MEAN CORPUSCULAR HEMOGLOBIN 24.8 pg (29.0-33.0); MEAN CORPUSCULAR HGB CONC 30.3 g/dl (32.0-37.0); MEAN CORPUSCULAR VOLUME 81.9 fl (82.0-101.0); MEAN PLATELET VOLUME 9.1 fl (7.4-10.4); MONOCYTE # 0.5 10^3/ul (0.3-0.9); MONOCYTES % 11.7 % (0.0-11.0); NEUTROPHIL # 2.7 10^3/ul (1.6-7.5); NEUTROPHILS % 67.6 % (39.0-77.0); PLATELET COUNT 227 10^3/UL (140-415); RED BLOOD COUNT 3.75 10^6/ul (4.70-6.10)
[2017-02-16] MEDS: APIXABAN 5 MG TABLET PO SCH ×2 (09:20→20:42)
[2017-02-16] MEDS: LOSARTAN 50 MG TAB PO SCH (09:22)
[2017-02-16] MEDS: MUPIROCIN 2% 22 GM OINT TOP SCH ×2 (09:23→20:43)
--- NOTE | 2017-02-16 09:49 | PN ---
Date/Time of Note Date/Time of Note DATE: 02/16/17 TIME: 09:47 Assessment/Plan VTE Prophylaxis VTE Prophylaxis Intervention: other (eliquis) Lines/Catheters IV Catheter Type (from Nrs): Saline Lock Urinary Cath still in place: No Assessment/Plan Assessment/Plan 1. Disuse myopathy with impaired mobility/gait/ADLs. Continue PT/OT. Standing balance poor plus. Continue to work on improving gait mechanics and standing balance to decrease fall risk. 2. Chronic low back pain. Pain controlled. Monitor. 3. History of degenerative joint disease, status post recent right total knee replacement. 4. RLE DVT. On eliquis per internal medicine. 5. Hypertension. Monitor BP. Internal medicine managing. 6. Anemia. Monitor hemoglobin/hematocrit, stable on labs today. 7. MRSA Nares. Continue treatment with bactroban. Continue isolation precautions. Subjective 24 Hr Interval Summary Free Text/Dictation Rehab progress note Subjective: Reports mild pain in low back currently, no acute changes. ROS: Denies chest pain, no shortness of breath, no abdominal pain, no nausea or vomiting, denies constipation. 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 Antigravity strength BLE. No new sensory changes. Results Result Diagram: 02/16/17 0625 02/13/17 0605 Results 24 hrs Laboratory Tests Test 02/16/17 06:25 White Blood Count 4.0 L Red Blood Count 3.75 L Hemoglobin 9.3 L Hematocrit 30.7 L Mean Corpuscular Volume 81.9 L Mean Corpuscular Hemoglobin 24.8 L Mean Corpuscular Hemoglobin Concent 30.3 L Red Cell Distribution Width 19.0 H Platelet Count 227 Mean Platelet Volume 9.1 Neutrophils % 67.6 Lymphocytes % 17.0 Monocytes % 11.7 H Eosinophils % 3.0 Basophils % 0.5 Nucleated Red Blood Cells % 0.0 Neutrophils # 2.7 Lymphocytes # 0.7 L Monocytes # 0.5 Eosinophils # 0.1 Basophils # 0.0 Nucleated Red Blood Cells # 0.0 Medications Medications Current Medications Acetaminophen (Tylenol Tab) 500 mg Q4H PRN PO PAIN AND OR ELEVATED TEMP; Start 02/12/17 at 21:00 Apixaban (Eliquis) 5 mg BID PO Last administered on 02/16/17 09:20; Admin Dose 5 MG; Start 02/12/17 at 22:00 Clonidine (Catapres) 0.1 mg Q4H PRN PO ELEVATED BLOOD PRESSURE; Start 02/12/17 at 21:00 Acetaminophen/ Hydrocodone Bitart ([place] (7.5-325)) 1 tab Q4H PRN PO SEVERE PAIN LEVEL 7-10 Last administered on 02/15/17 20:09; Admin Dose 1 TAB; Start at 21:00 Loperamide HCl (Imodium Cap) 2 mg QID PRN PO DIARRHEA; Start 02/12/17 at 21:00 Losartan Potassium (Cozaar) 50 mg DAILY PO Last administered on 02/16/17 09:22 ; Admin Dose 50 MG; Start 02/13/17 at 09:00 Ondansetron HCl (Zofran Inj) 4 mg Q6H PRN IV NAUSEA AND/OR VOMITING; Start at 21:00 Pantoprazole (Protonix Tab) 40 mg DAILY@06 PO Last administered on 02/16/17 06 :23; Admin Dose 40 MG; Start 02/13/17 at 06:00 Zolpidem Tartrate (Ambien) 5 mg HS PRN PO INSOMNIA; Start 02/12/17 at 21:00 Bisacodyl (Dulcolax Supp) 10 mg DAILY PRN [place] CONSTIPATION; Start 02/12/17 at 21 :30 Magnesium Hydroxide (Milk Of Mag) 30 ml BID PRN PO CONSTIPATION; Start at 21:30 Lactulose (Enulose) 20 gm DAILY PRN PO CONSTIPATION; Start 02/12/17 at 21:30 Lorazepam (Ativan) 0.5 mg BID PRN PO anxiety Last administered on 02/14/17 12: 04; Admin Dose 0.5 MG; Start 02/13/17 at 10:30 Mupirocin (Bactroban) 1 applic BID TOP Last administered on 02/16/17 09:23; Admin Dose 1 APPLIC; Start 02/14/17 at 12:00 ABE WARD Feb 16, 2017 09:49
[2017-02-16] MEDS: HYDROCODONE/APAP (7.5/325) TAB PO PRN ×2 (15:41→22:45)
[2017-02-16] MEDS ORDERED: VITAMIN A & D 5 GM OINT PACKET TOP ONE (15:45)
[2017-02-16 20:23] VITALS: BP 138/65; RESP 16
[2017-02-17] MEDS: PANTOPRAZOLE (EC) 40 MG TAB PO SCH (05:33)
[2017-02-17 07:30] VITALS: BP 143/71; RESP 18
[2017-02-17] MEDS: APIXABAN 5 MG TABLET PO SCH ×2 (07:50→21:02)
[2017-02-17] MEDS: LOSARTAN 50 MG TAB PO SCH (07:50)
[2017-02-17] MEDS: HYDROCODONE/APAP (7.5/325) TAB PO PRN ×2 (07:51→18:30)
[2017-02-17] MEDS: MUPIROCIN 2% 22 GM OINT TOP SCH ×2 (07:51→21:02)
--- NOTE | 2017-02-17 07:55 | PN ---
DATE: 02/16/2017 SUBJECTIVE: The patient overall feels well. No cough, no chest pain, no shortness of breath. PHYSICAL EXAMINATION: VITAL SIGNS: Temperature 98.2, blood pressure 127/61, respiration 20 per minute. CHEST: Clinically clear. HEART: S1, S2 heard. No definite gallops. EXTREMITIES: No edema. Homans sign is negative. IMPRESSION: 1. Status post right lower extremity deep vein thrombosis following knee replacement. 2. Disuse myopathy. 3. Hypertension. PLAN: Continue rehabilitation per Dr. Elmore. Dictated By: LESLEY PORTER MD SR/NTS Conf#: [id number] DID#: [id number]
--- NOTE | 2017-02-17 08:18 | PN ---
DATE: 02/15/2017 SUBJECTIVE: The patient overall feels well. Denies any chest pain or shortness of breath. PHYSICAL EXAMINATION GENERAL: The patient is afebrile. Blood pressure 122/61, respiratory rate 20 per minute, blood pre ssure is 144/72. HEENT: Head normocephalic. No pallor, cyanosis, or icterus. Tongue is dry. NECK: Supple. No thyromegaly, bruits, lymphadenopathy. LUNGS: Clinically clear. HEART: S1, S2, with no definite gallops. EXTREMITIES: No edema. Homans sign is negative. IMPRESSION 1. Status post right lower extremity deep vein thrombosis. 2. Diffuse myopathy. 3. Hypertension. PLAN: Continue rehabilitation per Dr. Elmore. Dictated By: LESLEY PORTER MD, SR/PRINCE Conf#: [id number] DID#: [id number]
--- NOTE | 2017-02-17 11:30 | PN ---
Date/Time of Note Date/Time of Note DATE: 02/17/17 TIME: 11:21 Assessment/Plan VTE Prophylaxis VTE Prophylaxis Intervention: other (eliquis) Lines/Catheters IV Catheter Type (from Nrs): Saline Lock Urinary Cath still in place: No Assessment/Plan Assessment/Plan 1. Disuse myopathy with impaired mobility/gait/ADLs. Continue PT/OT. 2.Chronic low back pain. Continue pain control with prn tylenol/norco, modalities as needed. 3. History of degenerative joint disease, status post recent right total knee replacement. 4. RLE DVT. On treatment with eliquis. 5. Hypertension. BP in fair control. Internal medicine managing. 6. Anemia. Monitor hemoglobin/hematocrit, stable on last labs. 7. MRSA Nares. Continue bactroban. Continue isolation precautions. Greater than 35 minutes spent on encounter today, greater than 50% of time face to face with patient, counseling, and in coordination of patient care. Team conference held today. Patient continues to make functional gains. See team conference/therapists notes for complete details. Currently, patient is requiring min assist for bed mobility, mod assist for transfers and min assist for gait. Mod assist for bathing, total assist for lower body dressing, SPV for grooming, min assist for upper body dressing. Subjective 24 Hr Interval Summary Free Text/Dictation Rehab progress note Subjective: No new complaints. Reports stable pain in low back, controlled with pain medications. ROS: Denies headache, no chest pain, no shortness of breath, no abdominal pain, no nausea, no vomiting. Exam/Review of Systems Vital Signs Vitals Vital Signs Date Time Temp Pulse Resp B/P Pulse Ox O2 Delivery O2 Flow Rate FiO2 02/17/17 07:30 98.2 58 18 143/71 100 02/14/17 07:45 Room Air Intake and Output 02/16/17 02/16/17 02/17/17 15:00 23:00 07:00 Intake Total 1080 ml Output Total 1050 ml Balance 30 ml Exam General: Awake, alert, no acute distress CV: Regular rate, s1s2 audible Lungs: Clear to auscultation, no wheezing Abdomen soft, nontender, +bowel sounds Extremities without cyanosis, no new swelling Neuro: No new focal changes. Follows simple commands. Results Result Diagram: 02/16/17 0625 6/15/17 0605 Medications Medications Current Medications Acetaminophen (Tylenol Tab) 500 mg Q4H PRN PO PAIN AND OR ELEVATED TEMP; Start 02/12/17 at 21:00 Apixaban (Eliquis) 5 mg BID PO Last administered on 02/17/17 07:50; Admin Dose 5 MG; Start 02/12/17 at 22:00 Clonidine (Catapres) 0.1 mg Q4H PRN PO ELEVATED BLOOD PRESSURE; Start 02/12/17 at 21:00 Acetaminophen/ Hydrocodone Bitart ([place] (7.5-325)) 1 tab Q4H PRN PO SEVERE PAIN LEVEL 7-10 Last administered on 02/17/17 07:51; Admin Dose 1 TAB; Start at 21:00 Loperamide HCl (Imodium Cap) 2 mg QID PRN PO DIARRHEA; Start 02/12/17 at 21:00 Losartan Potassium (Cozaar) 50 mg DAILY PO Last administered on 02/17/17 07:50 ; Admin Dose 50 MG; Start 02/13/17 at 09:00 Ondansetron HCl (Zofran Inj) 4 mg Q6H PRN IV NAUSEA AND/OR VOMITING; Start at 21:00 Pantoprazole (Protonix Tab) 40 mg DAILY@06 PO Last administered on 02/17/17 05 :33; Admin Dose 40 MG; Start 02/13/17 at 06:00 Zolpidem Tartrate (Ambien) 5 mg HS PRN PO INSOMNIA; Start 02/12/17 at 21:00 Bisacodyl (Dulcolax Supp) 10 mg DAILY PRN [place] CONSTIPATION; Start 02/12/17 at 21 :30 Magnesium Hydroxide (Milk Of Mag) 30 ml BID PRN PO CONSTIPATION; Start at 21:30 Lactulose (Enulose) 20 gm DAILY PRN PO CONSTIPATION; Start 02/12/17 at 21:30 Lorazepam (Ativan) 0.5 mg BID PRN PO anxiety Last administered on 02/14/17 12: 04; Admin Dose 0.5 MG; Start 02/13/17 at 10:30 Mupirocin (Bactroban) 1 applic BID TOP Last administered on 02/17/17 07:51; Admin Dose 1 APPLIC; Start 02/14/17 at 12:00 ABE WARD 19, 2017 11:30
[2017-02-17 19:07] VITALS: BP 141/93; RESP 18
[2017-02-18] MEDS: PANTOPRAZOLE (EC) 40 MG TAB PO SCH (06:23)
--- NOTE | 2017-02-18 07:32 | PN ---
DATE: 02/17/2017 SUBJECTIVE: The patient overall feels well. Denies any chest pain or shortness of breath, no leg c ramps. OBJECTIVE: VITAL SIGNS: Temperature 98.2, heart rate 58 per minute, blood pressure 143/71. CHEST: Clinically clear. HEART: S1, S2 heard with no definite gallops. EXTREMITIES: No edema. Homans negative. IMPRESSION: 1. Status post right lower extremity deep vein thrombosis. 2. Diffuse myopathy secondary to . 3. Hypertension. PLAN: Continue rehabilitation per Dr. Elmore. Dictated By: LESLEY PORTER MD SR/NTS Conf#: [id number] DID#: [id number]
[2017-02-18 07:53] VITALS: BP 179/79; RESP 18
[2017-02-18] MEDS: APIXABAN 5 MG TABLET PO SCH ×2 (08:51→20:30)
[2017-02-18] MEDS: LOSARTAN 50 MG TAB PO SCH (08:51)
[2017-02-18] MEDS: MUPIROCIN 2% 22 GM OINT TOP SCH ×2 (08:52→20:30)
--- NOTE | 2017-02-18 10:20 | PN ---
Date/Time of Note Date/Time of Note DATE: 02/18/17 TIME: 10:15 Assessment/Plan VTE Prophylaxis VTE Prophylaxis Intervention: other (Eliquis) Lines/Catheters IV Catheter Type (from Nrsg): Saline Lock Urinary Cath still in place: No Assessment/Plan Assessment/Plan 1. Disuse myopathy with impaired mobility/gait/ADLs. Continue PT/OT. Ambulating 300ft with min assist with FWW. Continue to work on improving standing balance, improving now poor plus to fair minus. 2. Chronic low back pain. Stable. Continue pain control. 3. History of degenerative joint disease, status post recent right total knee replacement. 4. RLE DVT. Continue anticoagulation with eliquis. 5. Hypertension. Monitor BP. Internal medicine managing. 6. Anemia. Monitor hemoglobin/hematocrit. 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 Continue isolation precautions. Subjective 24 Hr Interval Summary Free Text/Dictation Rehab progress note Subjective/History: No new complaints. No acute overnight events per nursing staff. ROS: Denies chest pain, no shortness of breath, no abdominal pain, no nausea or vomiting, no chills. Exam/Review of Systems Vital Signs Vitals Vital Signs Date Time Temp Pulse Resp B/P Pulse Ox O2 Delivery O2 Flow Rate FiO2 02/18/17 07:53 98.4 52 18 179/79 96 02/14/17 07:45 Room Air Intake and Output 02/17/17 02/17/17 02/18/17 15:00 23:00 07:00 Intake Total 820 ml 740 ml Output Total 300 ml 230 ml 250 ml Balance -300 ml 590 ml 490 ml Exam General: Awake, alert, no acute distress CV: Regular rate, s1s2 audible Lungs: Clear to auscultation, no wheezing or crackles Abdomen soft, nontender, +bowel sounds Extremities without cyanosis, no new swelling Neuro: No new focal changes. Follows simple commands. Results Result Diagram: 02/16/17 0625 Medications Medications Current Medications Acetaminophen (Tylenol Tab) 500 mg Q4H PRN PO PAIN AND OR ELEVATED TEMP; Start 02/12/17 at 21:00 Apixaban (Eliquis) 5 mg BID PO Last administered on 02/18/17t 08:51; Admin Dose 5 MG; Start 02/12/17 at 22:00 Clonidine (Catapres) 0.1 mg Q4H PRN PO ELEVATED BLOOD PRESSURE; Start 02/12/17 at 21:00 Acetaminophen/ Hydrocodone Bitart ([place] (7.5-325)) 1 tab Q4H PRN PO SEVERE PAIN LEVEL 7-10 Last administered on 02/17/17 18:30; Admin Dose 1 TAB; Start at 21:00 Loperamide HCl (Imodium Cap) 2 mg QID PRN PO DIARRHEA; Start 02/12/17 at 21:00 Losartan Potassium (Cozaar) 50 mg DAILY PO Last administered on 02/18/17 08:51 ; Admin Dose 50 MG; Start 02/13/17 at 09:00 Ondansetron HCl (Zofran Inj) 4 mg Q6H PRN IV NAUSEA AND/OR VOMITING; Start at 21:00 Pantoprazole (Protonix Tab) 40 mg DAILY@06 PO Last administered on 02/18/17 06 :23; Admin Dose 40 MG; Start 02/13/17 at 06:00 Zolpidem Tartrate (Ambien) 5 mg HS PRN PO INSOMNIA; Start 02/12/17 at 21:00 Bisacodyl (Dulcolax Supp) 10 mg DAILY PRN [place] CONSTIPATION; Start 02/12/17 at 21 :30 Magnesium Hydroxide (Milk Of Mag) 30 ml BID PRN PO CONSTIPATION; Start at 21:30 Lactulose (Enulose) 20 gm DAILY PRN PO CONSTIPATION; Start 02/12/17 at 21:30 Lorazepam (Ativan) 0.5 mg BID PRN PO anxiety Last administered on 02/14/17 12: 04; Admin Dose 0.5 MG; Start 02/13/17 at 10:30 Mupirocin (Bactroban) 1 applic BID TOP Last administered on 02/18/17 08:52; Admin Dose 1 APPLIC; Start 02/14/17 at 12:00 ABE WARD Feb 18, 2017 10:20
[2017-02-18] MEDS: HYDROCODONE/APAP (7.5/325) TAB PO PRN ×2 (10:24→14:28)
--- NOTE | 2017-02-18 14:38 | PN ---
DATE: 02/18/2017 SUBJECTIVE: The patient continues to gradually improve. Minimal pain in the right leg. Denies any chest pain or shortness of breath. PHYSICAL EXAMINATION VITAL SIGNS: Temperature 98.4, blood pressure 179/79, respiratory rate 20 per minute, heart rate 56 per minute regular. HEENT: Head normocephalic. No pallor, cyanosis, or icterus. Tongue is moist. NECK: Supple. CHEST: Clinically clear. EXTREMITIES: No edema. Homans negative. IMPRESSION: 1. Status post right lower extremity deep vein thrombosis. 2. Status post right knee replacement. 3. Diffuse myopathy. 4. Hypertension. PLAN: We will continue rehabilitation per ____. Dictated By: LESLEY PORTER MD, SR/PRINCE Conf#: [id number] DID#: [id number]
[2017-02-18 19:22] VITALS: BP 136/76; RESP 18
[2017-02-19] MEDS: PANTOPRAZOLE (EC) 40 MG TAB PO SCH (06:08)
[2017-02-19 07:30] VITALS: BP 164/80; RESP 18
[2017-02-19] MEDS: LOSARTAN 50 MG TAB PO SCH (08:05)
[2017-02-19] MEDS: APIXABAN 5 MG TABLET PO SCH ×2 (08:05→21:09)
[2017-02-19] MEDS: MUPIROCIN 2% 22 GM OINT TOP SCH ×2 (08:06→21:09)
--- NOTE | 2017-02-19 11:22 | PN ---
Date/Time of Note Date/Time of Note DATE: 02/19/17 TIME: 11:20 Assessment/Plan VTE Prophylaxis VTE Prophylaxis Intervention: other (eliquis) Lines/Catheters IV Catheter Type (from Nrs): Saline Lock Urinary Cath still in place: No Assessment/Plan Assessment/Plan 1. Disuse myopathy with impaired mobility/gait/ADLs. Continue PT/OT. Requires min verbal cues for problem solving during grooming and dressing tasks. 2. Chronic low back pain. Stable. Continue pain regimen, modalities as needed. 3. History of recent right total knee replacement. 4. RLE DVT. On eliquis per internal medicine. 5. Hypertension. Continue medical management per internal medicine. 6. Anemia. Monitor hemoglobin/hematocrit, stable on last labs. 7. MRSA Nares. Continue medical management. Continue on isolation. Subjective 24 Hr Interval Summary Free Text/Dictation Rehab progress note Subjective: No acute complaints. Denies any low back pain at present. ROS: Denies headache, no dizziness, no chest pain, no shortness of breath, no abdominal pain, no nausea or vomiting. Exam/Review of Systems Vital Signs Vitals Vital Signs Date Time Temp Pulse Resp B/P Pulse Ox O2 Delivery O2 Flow Rate FiO2 02/19/17 07:30 97.9 63 18 164/80 97 Intake and Output 02/18/17 02/18/17 02/19/17 15:00 23:00 07:00 Intake Total 1200 ml 600 ml 1060 ml Output Total 400 ml 180 ml 302 ml Balance 800 ml 420 ml 758 ml Exam General: Awake, alert, no acute distress CV: Regular rate, s1s2 audible Lungs: Clear to auscultation, no wheezing or crackles Abdomen soft, nontender, +bowel sounds Extremities without cyanosis, no new swelling Neuro: Moves BUE/BLE with antigravity strength. No new sensory changes. Results Result Diagram: 02/16/17 0625 Medications Medications Current Medications Acetaminophen (Tylenol Tab) 500 mg Q4H PRN PO PAIN AND OR ELEVATED TEMP; Start 02/12/17 at 21:00 Apixaban (Eliquis) 5 mg BID PO Last administered on 02/19/17t 08:05; Admin Dose 5 MG; Start 02/12/17 at 22:00 Clonidine (Catapres) 0.1 mg Q4H PRN PO ELEVATED BLOOD PRESSURE; Start 02/12/17 at 21:00 Acetaminophen/ Hydrocodone Bitart ([place] (7.5-325)) 1 tab Q4H PRN PO SEVERE PAIN LEVEL 7-10 Last administered on 02/18/17 14:28; Admin Dose 1 TAB; Start at 21:00 Loperamide HCl (Imodium Cap) 2 mg QID PRN PO DIARRHEA; Start 02/12/17 at 21:00 Losartan Potassium (Cozaar) 50 mg DAILY PO Last administered on 02/19/17 08:05 ; Admin Dose 50 MG; Start 02/13/17 at 09:00 Ondansetron HCl (Zofran Inj) 4 mg Q6H PRN IV NAUSEA AND/OR VOMITING; Start at 21:00 Pantoprazole (Protonix Tab) 40 mg DAILY@06 PO Last administered on 02/19/17 06 :08; Admin Dose 40 MG; Start 02/13/17 at 06:00 Zolpidem Tartrate (Ambien) 5 mg HS PRN PO INSOMNIA; Start 02/12/17 at 21:00 Bisacodyl (Dulcolax Supp) 10 mg DAILY PRN [place] CONSTIPATION; Start 02/12/17 at 21 :30 Magnesium Hydroxide (Milk Of Mag) 30 ml BID PRN [place] CONSTIPATION; Start at 21:30 Lactulose (Enulose) 20 gm DAILY PRN PO CONSTIPATION; Start 02/12/17 at 21:30 Lorazepam (Ativan) 0.5 mg BID PRN PO anxiety Last administered on 02/14/17 12: 04; Admin Dose 0.5 MG; Start 02/13/17 at 10:30 Mupirocin (Bactroban) 1 applic BID TOP Last administered on 02/19/17 08:06; Admin Dose 1 APPLIC; Start 02/14/17 at 12:00 ABE WARD Feb 19, 2017 11:22
--- NOTE | 2017-02-19 13:08 | PN ---
Date/Time of Note Date/Time of Note DATE: 02/19/17 TIME: 13:02 Assessment/Plan VTE Prophylaxis VTE Prophylaxis Intervention: other Lines/Catheters IV Catheter Type (from Nrsg): Saline Lock Urinary Cath still in place: No Assessment/Plan Assessment/Plan A: myopathy rle dvt rt tkr HTN MRSA nares P: cont PT cont current rx Subjective 24 Hr Interval Summary Free Text/Dictation Pt s/p rt TKR, rle dvt, myopathy tolerating therapy with improving strength per pt. No cp, sob, dizziness. Exam/Review of Systems Vital Signs Vitals Vital Signs Date Time Temp Pulse Resp B/P Pulse Ox O2 Delivery O2 Flow Rate FiO2 02/19/17 07:30 97.9 63 18 164/80 97 Intake and Output 02/18/17 02/18/17 02/19/17 15:00 23:00 07:00 Intake Total 1200 ml 600 ml 1060 ml Output Total 400 ml 180 ml 302 ml Balance 800 ml 420 ml 758 ml Exam gen- nad, nontoxic lungs- cta heart- regular ext- rle edema Results Result Diagram: 02/16/17 0625 Medications Medications Current Medications Acetaminophen (Tylenol Tab) 500 mg Q4H PRN PO PAIN AND OR ELEVATED TEMP; Start 02/12/17 at 21:00 Apixaban (Eliquis) 5 mg BID PO Last administered on 02/19/17 08:05; Admin Dose 5 MG; Start 02/12/17 at 22:00 Clonidine (Catapres) 0.1 mg Q4H PRN PO ELEVATED BLOOD PRESSURE; Start 02/12/17 at 21:00 Acetaminophen/ Hydrocodone Bitart ([place] (7.5-325)) 1 tab Q4H PRN PO SEVERE PAIN LEVEL 7-10 Last administered on 02/18/17 14:28; Admin Dose 1 TAB; Start at 21:00 Loperamide HCl (Imodium Cap) 2 mg QID PRN PO DIARRHEA; Start 02/12/17 at 21:00 Losartan Potassium (Cozaar) 50 mg DAILY PO Last administered on 02/19/17 08:05 ; Admin Dose 50 MG; Start 02/13/17 at 09:00 Ondansetron HCl (Zofran Inj) 4 mg Q6H PRN IV NAUSEA AND/OR VOMITING; Start at 21:00 Pantoprazole (Protonix Tab) 40 mg DAILY@06 PO Last administered on 02/19/17 06 :08; Admin Dose 40 MG; Start 02/13/17 at 06:00 Zolpidem Tartrate (Ambien) 5 mg HS PRN PO INSOMNIA; Start 02/12/17 at 21:00 Bisacodyl (Dulcolax Supp) 10 mg DAILY PRN [place] CONSTIPATION; Start 02/12/17 at 21 :30 Magnesium Hydroxide (Milk Of Mag) 30 ml BID PRN [place] CONSTIPATION; Start at 21:30 Lactulose (Enulose) 20 gm DAILY PRN [place] CONSTIPATION; Start 02/12/17 at 21:30 Lorazepam (Ativan) 0.5 mg BID PRN PO anxiety Last administered on 02/14/17 12: 04; Admin Dose 0.5 MG; Start 02/13/17 at 10:30 Mupirocin (Bactroban) 1 applic BID TOP Last administered on 02/19/17 08:06; Admin Dose 1 APPLIC; Start 02/14/17 at 12:00 BINA CORTEZ MD Feb 19, 2017 13:08
[2017-02-19 13:16] VITALS: BP 143/65; PULSE 80; RESP 18
[2017-02-19] MEDS: HYDROCODONE/APAP (7.5/325) TAB PO PRN ×2 (16:11→22:48)
[2017-02-19 20:00] VITALS: BP 157/65; RESP 18
[2017-02-20] MEDS: PANTOPRAZOLE (EC) 40 MG TAB PO SCH (06:14)
[2017-02-20 07:30] VITALS: BP 130/64; RESP 18
[2017-02-20] MEDS: LOSARTAN 50 MG TAB PO SCH (08:50)
[2017-02-20] MEDS: APIXABAN 5 MG TABLET PO SCH ×2 (08:50→21:18)
[2017-02-20] MEDS: HYDROCODONE/APAP (7.5/325) TAB PO PRN ×2 (08:52→21:19)
[2017-02-20] MEDS: MUPIROCIN 2% 22 GM OINT TOP SCH ×2 (09:12→21:19)
--- NOTE | 2017-02-20 11:20 | PN ---
Date/Time of Note Date/Time of Note DATE: 02/20/17 TIME: 11:17 Assessment/Plan VTE Prophylaxis VTE Prophylaxis Intervention: other (eliquis) Lines/Catheters IV Catheter Type (from Nrs): Saline Lock Urinary Cath still in place: No Assessment/Plan Assessment/Plan 1. Disuse myopathy with impaired mobility/gait/ADLs. Continue PT/OT. Gait improving now CGA with FWW. 2. Chronic low back pain. Pain stable. Continue pain regimen including prn norco. 3. History of degenerative joint disease, status post recent right total knee replacement. 4. RLE DVT. On eliquis per internal medicine. 5. Hypertension. Continue medical management per internal medicine. 6. Anemia. Monitor hemoglobin/hematocrit. 7. MRSA Nares.On contact isolation. Subjective 24 Hr Interval Summary Free Text/Dictation Rehab progress note Subjective: No acute complaints. Motivated for therapies. ROS: Denies headache, no chest pain, no shortness of breath, no abdominal pain, no nausea, no vomiting, no chills. Exam/Review of Systems Vital Signs Vitals Vital Signs Date Time Temp Pulse Resp B/P Pulse Ox O2 Delivery O2 Flow Rate FiO2 02/20/17 07:30 98.0 59 18 130/64 100 Intake and Output 02/19/17 02/19/17 02/20/17 15:00 23:00 07:00 Intake Total 960 ml 1080 ml 300 ml Output Total 200 ml 200 ml 1250 ml Balance 760 ml 880 ml -950 ml Exam General: Awake, alert, no acute distress CV: Regular rate, s1s2 audible Lungs: Respiration is nonlabored, no wheezing or crackles Abdomen soft, nontender, +bowel sounds Extremities without cyanosis, RLE edema unchanged. MSK/Neuro: Decreased AROM Bilateral shoulders. Antigravity strength BUE/BLE. No new sensory changes. Results Result Diagram: 02/16/17 0625 Medications Medications Current Medications Acetaminophen (Tylenol Tab) 500 mg Q4H PRN PO PAIN AND OR ELEVATED TEMP; Start 02/12/17 at 21:00 Apixaban (Eliquis) 5 mg BID PO Last administered on 02/20/17t 08:50; Admin Dose 5 MG; Start 02/12/17 at 22:00 Clonidine (Catapres) 0.1 mg Q4H PRN PO ELEVATED BLOOD PRESSURE; Start 02/12/17 at 21:00 Acetaminophen/ Hydrocodone Bitart ([place] (7.5-325)) 1 tab Q4H PRN PO SEVERE PAIN LEVEL 7-10 Last administered on 02/20/17 08:52; Admin Dose 1 TAB; Start at 21:00 Loperamide HCl (Imodium Cap) 2 mg QID PRN PO DIARRHEA; Start 02/12/17 at 21:00 Losartan Potassium (Cozaar) 50 mg DAILY PO Last administered on 02/20/17 08:50 ; Admin Dose 50 MG; Start 02/13/17 at 09:00 Ondansetron HCl (Zofran Inj) 4 mg Q6H PRN IV NAUSEA AND/OR VOMITING; Start at 21:00 Pantoprazole (Protonix Tab) 40 mg DAILY@06 PO Last administered on 02/20/17 06 :14; Admin Dose 40 MG; Start 02/13/17 at 06:00 Zolpidem Tartrate (Ambien) 5 mg HS PRN PO INSOMNIA; Start 02/12/17 at 21:00 Bisacodyl (Dulcolax Supp) 10 mg DAILY PRN [place] CONSTIPATION; Start 02/12/17 at 21 :30 Magnesium Hydroxide (Milk Of Mag) 30 ml BID PRN [place] CONSTIPATION; Start at 21:30 Lactulose (Enulose) 20 gm DAILY PRN PO CONSTIPATION; Start 02/12/17 at 21:30 Lorazepam (Ativan) 0.5 mg BID PRN PO anxiety Last administered on 02/14/17 12: 04; Admin Dose 0.5 MG; Start 02/13/17 at 10:30 Mupirocin (Bactroban) 1 applic BID TOP Last administered on 02/20/17 09:12; Admin Dose 1 APPLIC; Start 02/14/17 at 12:00 ABE WARD Feb 20, 2017 11:20
--- NOTE | 2017-02-20 13:53 | PN ---
Date/Time of Note Date/Time of Note DATE: 02/20/17 TIME: 13:51 Assessment/Plan VTE Prophylaxis VTE Prophylaxis Intervention: other Lines/Catheters IV Catheter Type (from Nrs): Saline Lock Urinary Cath still in place: No Assessment/Plan Assessment/Plan A: myopathy RLE DVT s/p rt TKR HTN P: cont rehab cont current rx Subjective 24 Hr Interval Summary Free Text/Dictation Pt getting stronger with PT. No cp, sob, bleeding probs. Exam/Review of Systems Vital Signs Vitals Vital Signs Date Time Temp Pulse Resp B/P Pulse Ox O2 Delivery O2 Flow Rate FiO2 02/20/17 07:30 98.0 59 18 130/64 100 Intake and Output 02/19/17 02/19/17 02/20/17 15:00 23:00 07:00 Intake Total 960 ml 1080 ml 300 ml Output Total 200 ml 200 ml 1250 ml Balance 760 ml 880 ml -950 ml Exam gen- nad, nontoxic lungs- CTA heart- regular ext- edema unchanged Results Result Diagram: 02/16/17 0625 Medications Medications Current Medications Acetaminophen (Tylenol Tab) 500 mg Q4H PRN PO PAIN AND OR ELEVATED TEMP; Start 02/12/17 at 21:00 Apixaban (Eliquis) 5 mg BID PO Last administered on 02/20/17 08:50; Admin Dose 5 MG; Start 02/12/17 at 22:00 Clonidine (Catapres) 0.1 mg Q4H PRN PO ELEVATED BLOOD PRESSURE; Start 02/12/17 at 21:00 Acetaminophen/ Hydrocodone Bitart ([place] (7.5-325)) 1 tab Q4H PRN PO SEVERE PAIN LEVEL 7-10 Last administered on 02/20/17 08:52; Admin Dose 1 TAB; Start at 21:00 Loperamide HCl (Imodium Cap) 2 mg QID PRN PO DIARRHEA; Start 02/12/17 at 21:00 Losartan Potassium (Cozaar) 50 mg DAILY PO Last administered on 02/20/17 08:50 ; Admin Dose 50 MG; Start 02/13/17 at 09:00 Ondansetron HCl (Zofran Inj) 4 mg Q6H PRN IV NAUSEA AND/OR VOMITING; Start at 21:00 Pantoprazole (Protonix Tab) 40 mg DAILY@06 PO Last administered on 02/20/17 06 :14; Admin Dose 40 MG; Start 02/13/17 at 06:00 Zolpidem Tartrate (Ambien) 5 mg HS PRN PO INSOMNIA; Start 02/12/17 at 21:00 Bisacodyl (Dulcolax Supp) 10 mg DAILY PRN [place] CONSTIPATION; Start 02/12/17 at 21 :30 Magnesium Hydroxide (Milk Of Mag) 30 ml BID PRN PO CONSTIPATION; Start at 21:30 Lactulose (Enulose) 20 gm DAILY PRN PO CONSTIPATION; Start 02/12/17 at 21:30 Lorazepam (Ativan) 0.5 mg BID PRN PO anxiety Last administered on 02/14/17 12: 04; Admin Dose 0.5 MG; Start 02/13/17 at 10:30 Mupirocin (Bactroban) 1 applic BID TOP Last administered on 02/20/17 09:12; Admin Dose 1 APPLIC; Start 02/14/17 at 12:00 BINA CORTEZ MD Feb 20, 2017 13:53
[2017-02-20 19:28] VITALS: BP 122/58; RESP 19
[2017-02-21] MEDS: PANTOPRAZOLE (EC) 40 MG TAB PO SCH (07:04)
[2017-02-21] MEDS: HYDROCODONE/APAP (7.5/325) TAB PO PRN ×3 (08:04→21:21)
[2017-02-21] MEDS: LOSARTAN 50 MG TAB PO SCH (08:04)
[2017-02-21] MEDS: APIXABAN 5 MG TABLET PO SCH ×2 (08:04→21:20)
[2017-02-21] MEDS: MUPIROCIN 2% 22 GM OINT TOP SCH (08:05)
[2017-02-21 08:10] VITALS: BP 149/68; RESP 18
--- NOTE | 2017-02-21 10:28 | PN ---
Date/Time of Note Date/Time of Note DATE: 02/21/17 TIME: 10:25 Assessment/Plan VTE Prophylaxis VTE Prophylaxis Intervention: other (Eliquis) Lines/Catheters IV Catheter Type (from Nrs): Saline Lock Urinary Cath still in place: No Assessment/Plan Assessment/Plan 1. Disuse myopathy with impaired mobility/gait/ADLs. Continue PT/OT. SBA for feeding, min assist for upper body dressing and toileting. 2. Chronic low back pain. Stable. Continue pain control. 3. History of degenerative joint disease, status post recent right total knee replacement. 4. RLE DVT. On eliquis per internal medicine. 5. Hypertension. Continue antihypertensive medication per internal medicine. 6. Anemia. Continue to monitor. Internal medicine managing. 7. MRSA Nares.Continue contact isolation. Subjective 24 Hr Interval Summary Free Text/Dictation Rehab progress note Subjective: No acute complaints. ROS: Denies headache, no dizziness, no chest pain, no shortness of breath, no abdominal pain, no nausea or vomiting, no chills. Exam/Review of Systems Vital Signs Vitals Vital Signs Date Time Temp Pulse Resp B/P Pulse Ox O2 Delivery O2 Flow Rate FiO2 02/21/17 08:10 98.0 50 18 149/68 96 Intake and Output 02/20/17 02/20/17 02/21/17 15:00 23:00 07:00 Intake Total 860 ml 350 ml Output Total 201 ml 850 ml Balance 659 ml -500 ml Exam General: Awake, alert, no acute distress CV: Regular rate, s1s2 audible Lungs: Respirations nonlabored, no wheezing or crackles Abdomen soft, nontender, +bowel sounds Extremities without cyanosis, RLE edema without changes. Neuro: No new focal changes. Follows simple commands. Medications Medications Current Medications Acetaminophen (Tylenol Tab) 500 mg Q4H PRN PO PAIN AND OR ELEVATED TEMP; Start 02/12/17 at 21:00 Apixaban (Eliquis) 5 mg BID PO Last administered on 02/21/17t 08:04; Admin Dose 5 MG; Start 02/12/17 at 22:00 Clonidine (Catapres) 0.1 mg Q4H PRN PO ELEVATED BLOOD PRESSURE; Start 02/12/17 at 21:00 Acetaminophen/ Hydrocodone Bitart ([place] (7.5-325)) 1 tab Q4H PRN PO SEVERE PAIN LEVEL 7-10 Last administered on 02/21/17 08:04; Admin Dose 1 TAB; Start at 21:00 Loperamide HCl (Imodium Cap) 2 mg QID PRN PO DIARRHEA; Start 02/12/17 at 21:00 Losartan Potassium (Cozaar) 50 mg DAILY PO Last administered on 02/21/17 08:04 ; Admin Dose 50 MG; Start 02/13/17 at 09:00 Ondansetron HCl (Zofran Inj) 4 mg Q6H PRN IV NAUSEA AND/OR VOMITING; Start at 21:00 Pantoprazole (Protonix Tab) 40 mg DAILY@06 PO Last administered on 02/21/17 07 :04; Admin Dose 40 MG; Start 02/13/17 at 06:00 Zolpidem Tartrate (Ambien) 5 mg HS PRN PO INSOMNIA; Start 02/12/17 at 21:00 Bisacodyl (Dulcolax Supp) 10 mg DAILY PRN [place] CONSTIPATION; Start 02/12/17 at 21 :30 Magnesium Hydroxide (Milk Of Mag) 30 ml BID PRN PO CONSTIPATION; Start at 21:30 Lactulose (Enulose) 20 gm DAILY PRN PO CONSTIPATION; Start 02/12/17 at 21:30 Lorazepam (Ativan) 0.5 mg BID PRN PO anxiety Last administered on 02/14/17 12: 04; Admin Dose 0.5 MG; Start 02/13/17 at 10:30 Mupirocin (Bactroban) 1 applic BID TOP Last administered on 02/21/17 08:05; Admin Dose 1 APPLIC; Start 02/14/17 at 12:00 ABE WARD Feb 21, 2017 10:28
--- NOTE | 2017-02-21 15:03 | PN ---
Date/Time of Note Date/Time of Note DATE: 02/21/17 TIME: 15:00 Assessment/Plan VTE Prophylaxis VTE Prophylaxis Intervention: other Lines/Catheters IV Catheter Type (from Nrs): Saline Lock Urinary Cath still in place: No Assessment/Plan Assessment/Plan A: myopathy DVT s/p rt TKR HTN P: cont current rx cont therapy Subjective 24 Hr Interval Summary Free Text/Dictation Pt says they worked him "real good in therapy today", which he tolerated well by his account. Pt denies cp, sob, dizziness. Exam/Review of Systems Vital Signs Vitals Vital Signs Date Time Temp Pulse Resp B/P Pulse Ox O2 Delivery O2 Flow Rate FiO2 02/21/17 08:10 98.0 50 18 149/68 96 Intake and Output 02/20/17 02/20/17 02/21/17 15:00 23:00 07:00 Intake Total 860 ml 350 ml Output Total 201 ml 850 ml Balance 659 ml -500 ml Exam gen- nad, nontoxic lungs- CTA heart- regular abd- +BS, soft, nontender. ext- edema unchanged Medications Medications Current Medications Acetaminophen (Tylenol Tab) 500 mg Q4H PRN PO PAIN AND OR ELEVATED TEMP; Start 02/12/17 at 21:00 Apixaban (Eliquis) 5 mg BID PO Last administered on 02/21/17 08:04; Admin Dose 5 MG; Start 02/12/17 at 22:00 Clonidine (Catapres) 0.1 mg Q4H PRN PO ELEVATED BLOOD PRESSURE; Start 02/12/17 at 21:00 Acetaminophen/ Hydrocodone Bitart ([place] (7.5-325)) 1 tab Q4H PRN PO SEVERE PAIN LEVEL 7-10 Last administered on 02/21/17 14:23; Admin Dose 1 TAB; Start at 21:00 Loperamide HCl (Imodium Cap) 2 mg QID PRN PO DIARRHEA; Start 02/12/17 at 21:00 Losartan Potassium (Cozaar) 50 mg DAILY PO Last administered on 02/21/17 08:04 ; Admin Dose 50 MG; Start 02/13/17 at 09:00 Ondansetron HCl (Zofran Inj) 4 mg Q6H PRN IV NAUSEA AND/OR VOMITING; Start at 21:00 Pantoprazole (Protonix Tab) 40 mg DAILY@06 PO Last administered on 02/21/17 07 :04; Admin Dose 40 MG; Start 02/13/17 at 06:00 Zolpidem Tartrate (Ambien) 5 mg HS PRN PO INSOMNIA; Start 02/12/17 at 21:00 Bisacodyl (Dulcolax Supp) 10 mg DAILY PRN [place] CONSTIPATION; Start 02/12/17 at 21 :30 Magnesium Hydroxide (Milk Of Mag) 30 ml BID PRN PO CONSTIPATION; Start at 21:30 Lactulose (Enulose) 20 gm DAILY PRN PO CONSTIPATION; Start 02/12/17 at 21:30 Lorazepam (Ativan) 0.5 mg BID PRN PO anxiety Last administered on 02/14/17 12: 04; Admin Dose 0.5 MG; Start 02/13/17 at 10:30 BINA CORTEZ MD Feb 21, 2017 15:03
[2017-02-21 20:00] VITALS: BP 141/68; RESP 18
[2017-02-21] MEDS: LORAZEPAM 0.5 MG TAB PO PRN (21:20)
[2017-02-22] MEDS: PANTOPRAZOLE (EC) 40 MG TAB PO SCH (06:37)
[2017-02-22 07:30] VITALS: BP 148/67; RESP 18
[2017-02-22] MEDS: APIXABAN 5 MG TABLET PO SCH ×2 (08:22→21:40)
[2017-02-22] MEDS: LOSARTAN 50 MG TAB PO SCH (08:23)
[2017-02-22 08:24] VITALS: BP 158/102; PULSE 58; RESP 16
--- NOTE | 2017-02-22 10:37 | PN ---
Date/Time of Note Date/Time of Note DATE: 02/22/17 TIME: 10:32 Assessment/Plan VTE Prophylaxis VTE Prophylaxis Intervention: other (Eliquis) Lines/Catheters IV Catheter Type (from Nrsg): Saline Lock Urinary Cath still in place: No Assessment/Plan Assessment/Plan 1. Disuse myopathy with impaired mobility/gait/ADLs. Continue PT/OT. Gait and bed mobility improving now SBA, transfers improving now min assist to CGA. 2. Chronic low back pain. Stable. Continue pain regimen. 3. History of degenerative joint disease, with right total knee replacement. 4. RLE DVT. On eliquis, managed per internal medicine. 5. Hypertension. Continue to monitor BP. Medical management per internal medicine. 6. Anemia. Monitor hemoglobin/hematocrit. Subjective 24 Hr Interval Summary Free Text/Dictation Rehab progress note Subjective:: No acute complaints. ROS: Denies chest pain, no shortness of breath, no abdominal pain, no nausea or vomiting, no chills, no headache. Exam/Review of Systems Vital Signs Vitals Vital Signs Date Time Temp Pulse Resp B/P Pulse Ox O2 Delivery O2 Flow Rate FiO2 02/22/17 08:24 58 16 158/102 97 Room Air 02/21/17 20:00 98.0 Intake and Output 02/21/17 02/21/17 02/22/17 15:00 23:00 07:00 Intake Total 600 ml 600 ml 300 ml Output Total 150 ml 400 ml 900 ml Balance 450 ml 200 ml -600 ml Exam General: Awake, alert, no acute distress CV: Regular rate, s1s2 audible Lungs: Clear to auscultation, no wheezing or crackles Abdomen soft, nontender, +bowel sounds Extremities without cyanosis, no new swelling MSK/Neuro:No new focal changes. Follows simple commands. Medications Medications Current Medications Acetaminophen (Tylenol Tab) 500 mg Q4H PRN PO PAIN AND OR ELEVATED TEMP; Start 02/12/17 at 21:00 Apixaban (Eliquis) 5 mg BID PO Last administered on 02/22/17t 08:22; Admin Dose 5 MG; Start 02/12/17 at 22:00 Clonidine (Catapres) 0.1 mg Q4H PRN PO ELEVATED BLOOD PRESSURE; Start 02/12/17 at 21:00 Acetaminophen/ Hydrocodone Bitart ([place] (7.5-325)) 1 tab Q4H PRN PO SEVERE PAIN LEVEL 7-10 Last administered on 02/21/17 21:21; Admin Dose 1 TAB; Start at 21:00 Loperamide HCl (Imodium Cap) 2 mg QID PRN PO DIARRHEA; Start 02/12/17 at 21:00 Losartan Potassium (Cozaar) 50 mg DAILY PO Last administered on 02/22/17 08:23 ; Admin Dose 50 MG; Start 02/13/17 at 09:00 Ondansetron HCl (Zofran Inj) 4 mg Q6H PRN IV NAUSEA AND/OR VOMITING; Start at 21:00 Pantoprazole (Protonix Tab) 40 mg DAILY@06 PO Last administered on 02/22/17 06 :37; Admin Dose 40 MG; Start 02/13/17 at 06:00 Zolpidem Tartrate (Ambien) 5 mg HS PRN PO INSOMNIA; Start 02/12/17 at 21:00 Bisacodyl (Dulcolax Supp) 10 mg DAILY PRN [place] CONSTIPATION; Start 02/12/17 at 21 :30 Magnesium Hydroxide (Milk Of Mag) 30 ml BID PRN PO CONSTIPATION; Start at 21:30 Lactulose (Enulose) 20 gm DAILY PRN PO CONSTIPATION; Start 02/12/17 at 21:30 Lorazepam (Ativan) 0.5 mg BID PRN PO anxiety Last administered on 02/21/17 21: 20; Admin Dose 0.5 MG; Start 02/13/17 at 10:30 ABE WARD Feb 22, 2017 10:37
--- NOTE | 2017-02-22 14:57 | PN ---
Date/Time of Note Date/Time of Note DATE: 02/22/17 TIME: 14:51 Assessment/Plan VTE Prophylaxis VTE Prophylaxis Intervention: other Lines/Catheters IV Catheter Type (from Nrsg): Saline Lock Urinary Cath still in place: No Assessment/Plan Assessment/Plan A: myopathy RLE DVT s/p rt TKR HTN P: cont current rx cont rehab Subjective 24 Hr Interval Summary Free Text/Dictation Pt feeling good. Mild soreness from workout yesterday. No cp, sob, HERNANDEZ, dizziness. BP higher this am, pt says taken right after 2cups of coffee. Exam/Review of Systems Vital Signs Vitals Vital Signs Date Time Temp Pulse Resp B/P Pulse Ox O2 Delivery O2 Flow Rate FiO2 02/22/17 08:24 58 16 158/102 97 Room Air 02/22/17 07:30 97.7 Intake and Output 02/21/17 02/21/17 02/22/17 15:00 23:00 07:00 Intake Total 600 ml 600 ml 300 ml Output Total 150 ml 400 ml 900 ml Balance 450 ml 200 ml -600 ml Exam gen- nad, nontoxic lungs- CTA heart- S1, S2 well heard abd- +BS, soft, nontender ext- edema unchanged Medications Medications Current Medications Acetaminophen (Tylenol Tab) 500 mg Q4H PRN PO PAIN AND OR ELEVATED TEMP; Start 02/12/17 at 21:00 Apixaban (Eliquis) 5 mg BID PO Last administered on 02/22/17 08:22; Admin Dose 5 MG; Start 02/12/17 at 22:00 Clonidine (Catapres) 0.1 mg Q4H PRN PO ELEVATED BLOOD PRESSURE; Start 02/12/17 at 21:00 Acetaminophen/ Hydrocodone Bitart ([place] (7.5-325)) 1 tab Q4H PRN PO SEVERE PAIN LEVEL 7-10 Last administered on 02/21/17 21:21; Admin Dose 1 TAB; Start at 21:00 Loperamide HCl (Imodium Cap) 2 mg QID PRN PO DIARRHEA; Start 02/12/17 at 21:00 Losartan Potassium (Cozaar) 50 mg DAILY PO Last administered on 02/22/17 08:23 ; Admin Dose 50 MG; Start 02/13/17 at 09:00 Ondansetron HCl (Zofran Inj) 4 mg Q6H PRN IV NAUSEA AND/OR VOMITING; Start at 21:00 Pantoprazole (Protonix Tab) 40 mg DAILY@06 PO Last administered on 02/22/17 06 :37; Admin Dose 40 MG; Start 02/13/17 at 06:00 Zolpidem Tartrate (Ambien) 5 mg HS PRN PO INSOMNIA; Start 02/12/17 at 21:00 Bisacodyl (Dulcolax Supp) 10 mg DAILY PRN [place] CONSTIPATION; Start 02/12/17 at 21 :30 Magnesium Hydroxide (Milk Of Mag) 30 ml BID PRN PO CONSTIPATION; Start at 21:30 Lactulose (Enulose) 20 gm DAILY PRN PO CONSTIPATION; Start 02/12/17 at 21:30 Lorazepam (Ativan) 0.5 mg BID PRN PO anxiety Last administered on 02/21/17 21: 20; Admin Dose 0.5 MG; Start 02/13/17 at 10:30 BINA CORTEZ MD Feb 22, 2017 14:57
[2017-02-22] MEDS: HYDROCODONE/APAP (7.5/325) TAB PO PRN ×2 (17:00→21:40)
[2017-02-22 20:00] VITALS: BP 116/59; RESP 18
[2017-02-22] MEDS: LORAZEPAM 0.5 MG TAB PO PRN (21:40)
[2017-02-23] MEDS: PANTOPRAZOLE (EC) 40 MG TAB PO SCH (06:06)
[2017-02-23 08:00] VITALS: BP 132/57; RESP 17
[2017-02-23] MEDS: APIXABAN 5 MG TABLET PO SCH ×2 (08:24→20:04)
[2017-02-23 08:26] VITALS: BP 168/76; PULSE 58; RESP 16
[2017-02-23] MEDS: LOSARTAN 50 MG TAB PO SCH (08:26)
--- NOTE | 2017-02-23 10:10 | PN ---
Date/Time of Note Date/Time of Note DATE: 02/23/17 TIME: 10:07 Assessment/Plan VTE Prophylaxis VTE Prophylaxis Intervention: other (Eliquis) Lines/Catheters IV Catheter Type (from Nrs): Saline Lock Urinary Cath still in place: No Assessment/Plan Assessment/Plan 1. Disuse myopathy with impaired mobility/gait/ADLs. Continue PT/OT. Gait has progressed, now ambulating 600 ft x 2 with only 1 standing break using FWW with SBA. 2. Chronic low back pain. Pain controlled. 3. History of degenerative joint disease, status post recent right total knee replacement. 4. RLE DVT. On eliquis. 5. Hypertension. Continue to monitor BP. Internal medicine managing. 6. Anemia. Monitor hemoglobin/hematocrit. Subjective 24 Hr Interval Summary Free Text/Dictation Rehab progress note Subjective: No acute complaints. ROS: Denies headache, no dizziness, no chest pain, no shortness of breath, no abdominal pain, no nausea or vomiting, no constipation. Exam/Review of Systems Vital Signs Vitals Vital Signs Date Time Temp Pulse Resp B/P Pulse Ox O2 Delivery O2 Flow Rate FiO2 02/23/17 08:26 98.0 58 16 168/76 98 Room Air Intake and Output 02/22/17 02/22/17 02/23/17 15:00 23:00 07:00 Intake Total 2480 ml 200 ml Output Total 1770 ml 1100 ml Balance 710 ml -900 ml Exam General: Awake, alert, no acute distress CV: Regular rate, s1s2 audible Lungs: Symmetrical air entry bilaterally, no wheezing or crackles Abdomen soft, nontender, +bowel sounds Extremities without cyanosis, no new swelling MSK/Neuro:No new focal changes. Decreased shoulder ROM bilaterally. Medications Medications Current Medications Acetaminophen (Tylenol Tab) 500 mg Q4H PRN PO PAIN AND OR ELEVATED TEMP; Start 02/12/17 at 21:00 Apixaban (Eliquis) 5 mg BID PO Last administered on 02/23/17t 08:24; Admin Dose 5 MG; Start 02/12/17 at 22:00 Clonidine (Catapres) 0.1 mg Q4H PRN PO ELEVATED BLOOD PRESSURE; Start 02/12/17 at 21:00 Acetaminophen/ Hydrocodone Bitart ([place] (7.5-325)) 1 tab Q4H PRN PO SEVERE PAIN LEVEL 7-10 Last administered on 02/22/17 21:40; Admin Dose 1 TAB; Start at 21:00 Loperamide HCl (Imodium Cap) 2 mg QID PRN PO DIARRHEA; Start 02/12/17 at 21:00 Losartan Potassium (Cozaar) 50 mg DAILY PO Last administered on 02/23/17 08:26 ; Admin Dose 50 MG; Start 02/13/17 at 09:00 Ondansetron HCl (Zofran Inj) 4 mg Q6H PRN IV NAUSEA AND/OR VOMITING; Start at 21:00 Pantoprazole (Protonix Tab) 40 mg DAILY@06 PO Last administered on 02/23/17 06 :06; Admin Dose 40 MG; Start 02/13/17 at 06:00 Zolpidem Tartrate (Ambien) 5 mg HS PRN PO INSOMNIA; Start 02/12/17 at 21:00 Bisacodyl (Dulcolax Supp) 10 mg DAILY PRN [place] CONSTIPATION; Start 02/12/17 at 21 :30 Magnesium Hydroxide (Milk Of Mag) 30 ml BID PRN PO CONSTIPATION; Start at 21:30 Lactulose (Enulose) 20 gm DAILY PRN PO CONSTIPATION; Start 02/12/17 at 21:30 Lorazepam (Ativan) 0.5 mg BID PRN PO anxiety Last administered on 02/22/17 21: 40; Admin Dose 0.5 MG; Start 02/13/17 at 10:30 ABE WARD Feb 23, 2017 10:10
[2017-02-23 10:29] VITALS: BP 134/65; PULSE 64; RESP 16
--- NOTE | 2017-02-23 14:11 | PN ---
Date/Time of Note Date/Time of Note DATE: 02/23/17 TIME: 14:08 Assessment/Plan VTE Prophylaxis VTE Prophylaxis Intervention: other Lines/Catheters IV Catheter Type (from Nrsg): Saline Lock Urinary Cath still in place: No Assessment/Plan Assessment/Plan A: myopathy rt LE DVT s/p rt TKR HTN P: cont rehab cont current rx Subjective 24 Hr Interval Summary Free Text/Dictation Pt feeling good. No cp, sob. Edema about the same. Exam/Review of Systems Vital Signs Vitals Vital Signs Date Time Temp Pulse Resp B/P Pulse Ox O2 Delivery O2 Flow Rate FiO2 02/23/17 10:29 64 16 134/65 97 Room Air 02/23/17 08:26 98.0 Intake and Output 02/22/17 02/22/17 02/23/17 14:59 22:59 06:59 Intake Total 2480 ml 200 ml Output Total 1770 ml 1100 ml Balance 710 ml -900 ml Exam gen- NAD, nontoxic lungs- CTA heart- S1, S2 well heard abd- +BS, soft, nontender ext- sl decreased edema Medications Medications Current Medications Acetaminophen (Tylenol Tab) 500 mg Q4H PRN PO PAIN AND OR ELEVATED TEMP; Start 02/12/17 at 21:00 Apixaban (Eliquis) 5 mg BID PO Last administered on 02/23/17 08:24; Admin Dose 5 MG; Start 02/12/17 at 22:00 Clonidine (Catapres) 0.1 mg Q4H PRN PO ELEVATED BLOOD PRESSURE; Start 02/12/17 at 21:00 Acetaminophen/ Hydrocodone Bitart ([place] (7.5-325)) 1 tab Q4H PRN PO SEVERE PAIN LEVEL 7-10 Last administered on 02/22/17 21:40; Admin Dose 1 TAB; Start at 21:00 Loperamide HCl (Imodium Cap) 2 mg QID PRN PO DIARRHEA; Start 02/12/17 at 21:00 Losartan Potassium (Cozaar) 50 mg DAILY PO Last administered on 02/23/17 08:26 ; Admin Dose 50 MG; Start 02/13/17 at 09:00 Ondansetron HCl (Zofran Inj) 4 mg Q6H PRN IV NAUSEA AND/OR VOMITING; Start at 21:00 Pantoprazole (Protonix Tab) 40 mg DAILY@06 PO Last administered on 02/23/17 06 :06; Admin Dose 40 MG; Start 02/13/17 at 06:00 Zolpidem Tartrate (Ambien) 5 mg HS PRN PO INSOMNIA; Start 02/12/17 at 21:00 Bisacodyl (Dulcolax Supp) 10 mg DAILY PRN [place] CONSTIPATION; Start 02/12/17 at 21 :30 Magnesium Hydroxide (Milk Of Mag) 30 ml BID PRN PO CONSTIPATION; Start at 21:30 Lactulose (Enulose) 20 gm DAILY PRN PO CONSTIPATION; Start 02/12/17 at 21:30 Lorazepam (Ativan) 0.5 mg BID PRN PO anxiety Last administered on 02/22/17 21: 40; Admin Dose 0.5 MG; Start 02/13/17 at 10:30 BINA CORTEZ MD Feb 23, 2017 14:11
[2017-02-23 20:27] VITALS: BP 151/66; RESP 18
[2017-02-24] MEDS: HYDROCODONE/APAP (7.5/325) TAB PO PRN (03:23)
[2017-02-24] MEDS: PANTOPRAZOLE (EC) 40 MG TAB PO SCH (06:23)
[2017-02-24 07:30] VITALS: BP 176/74; RESP 18
[2017-02-24] MEDS: APIXABAN 5 MG TABLET PO SCH (08:48)
[2017-02-24] MEDS: LOSARTAN 50 MG TAB PO SCH (08:48)
--- NOTE | 2017-02-24 12:10 | CONS ---
Date/Time of Note Date/Time of Note DATE: 02/24/17 TIME: 12:09 Consult Date/Type/Reason Admit Date/Time Feb 12, 2017 at 18:47 Objective Vital Signs Date Time Temp Pulse Resp B/P Pulse Ox O2 Delivery O2 Flow Rate FiO2 02/24/17 07:30 98.2 60 18 176/74 99 02/23/17 10:29 Room Air Intake and Output 02/23/17 02/23/17 02/24/17 15:00 23:00 07:00 Intake Total 650 ml 1250 ml 1230 ml Output Total 450 ml 1400 ml 650 ml Balance 200 ml -150 ml 580 ml INTERDISCIPLINARY TEAM CONFERENCE BOWEL- Cont BLADDER-Cont SKIN- intact OT- DRESSING-sba BATHING-sba TOILETING-sba PT- BED MOBILITY-sba TRANSFERS-sba AMBULATION-sba 150 feet A/P- Interdisciplinary team conference held today. Please see interdisciplinary sheet. Working toward d.c. today with post discharge follow up of physical therapy, occupational therapy. Results/Medications Medications Current Medications Acetaminophen (Tylenol Tab) 500 mg Q4H PRN PO PAIN AND OR ELEVATED TEMP; Start 02/12/17 at 21:00 Apixaban (Eliquis) 5 mg BID PO Last administered on 02/24/17 08:48; Admin Dose 5 MG; Start 02/12/17 at 22:00 Clonidine (Catapres) 0.1 mg Q4H PRN PO ELEVATED BLOOD PRESSURE; Start 02/12/17 at 21:00 Acetaminophen/ Hydrocodone Bitart ([place] (7.5-325)) 1 tab Q4H PRN PO SEVERE PAIN LEVEL 7-10 Last administered on 02/24/17 03:23; Admin Dose 1 TAB; Start at 21:00 Loperamide HCl (Imodium Cap) 2 mg QID PRN PO DIARRHEA; Start 02/12/17 at 21:00 Losartan Potassium (Cozaar) 50 mg DAILY PO Last administered on 02/24/17 08:48 ; Admin Dose 50 MG; Start 02/13/17 at 09:00 Ondansetron HCl (Zofran Inj) 4 mg Q6H PRN IV NAUSEA AND/OR VOMITING; Start at 21:00 Pantoprazole (Protonix Tab) 40 mg DAILY@06 PO Last administered on 02/24/17 06 :23; Admin Dose 40 MG; Start 02/13/17 at 06:00 Zolpidem Tartrate (Ambien) 5 mg HS PRN PO INSOMNIA; Start 02/12/17 at 21:00 Bisacodyl (Dulcolax Supp) 10 mg DAILY PRN [place] CONSTIPATION; Start 02/12/17 at 21 :30 Magnesium Hydroxide (Milk Of Mag) 30 ml BID PRN PO CONSTIPATION; Start at 21:30 Lactulose (Enulose) 20 gm DAILY PRN PO CONSTIPATION; Start 02/12/17 at 21:30 Lorazepam (Ativan) 0.5 mg BID PRN PO anxiety Last administered on 02/22/17 21: 40; Admin Dose 0.5 MG; Start 02/13/17 at 10:30 YASH MORALES MD Feb 24, 2017 12:10
== END 2017-02-24 13:30 | disposition home health service (06) | DRG 92 ==
LOC: VRC 18:47
PROVIDERS: ADMIT Internal Medicine; ATTEND Physical Medicine & Rehabilitation
PROC: F07Z5ZZ Bed Mobility Treatment (ICD-10-PCS; principal; 2017-02-12)
PROC: F08Z2ZZ Grooming/Personal Hygiene Treatment (ICD-10-PCS; 2017-02-12)
PROC: F06Z6ZZ Communicative/Cognitive Integration Skills Treatment (ICD-10-PCS; 2017-02-12)
DX: G72.9 Myopathy, unspecified (principal); I82.401 Acute embolism and thrombosis of unspecified deep veins of right lower extremity; D64.9 Anemia, unspecified; M54.16 Radiculopathy, lumbar region; M19.90 Unspecified osteoarthritis, unspecified site; I10 Essential (primary) hypertension; M17.11 Unilateral primary osteoarthritis, right knee; Z96.651 Presence of right artificial knee joint; M54.5 Low back pain
CPT/HCPCS: 80053; 81003; 85025; 87081; 87086; 92507; 92523; 97110; 97112; 97116; 97150; 97163; 97167; 97530; 97535; 97542